=== PATIENT | male | born 1955 | race Caucasian/White ===

== ENCOUNTER → 2018-09-14 16:02 | Outpatient (CLI) | payer MEDICARE, SELFPAY ==
--- NOTE | 2018-09-14 | XR_ITS ---
XR chest 2V HISTORY: ITS.REASON: SOA, COUGH ORDERING PHYSICIAN: Angel Frank PATIENT AGE: 63 years COMPARISON: 11/15/2009 FINDINGS: The cardiomediastinal silhouette and pulmonary vascularity are within normal limits. The lungs are clear without infiltrates, suspicious nodules, or pleural effusions. No acute bony abnormalities. IMPRESSION: Negative chest, no acute finding
== END ==
PROVIDERS: PCP Internal Medicine; Visit Provider Internal Medicine
DX: R05 Cough (principal); R06.02 Shortness of breath
CPT/HCPCS: 71046; 93005

== ENCOUNTER 2020-04-30 20:51 | Emergency (ER) | payer MEDICARE, SELFPAY ==
[2020-04-30 21:00] VITALS: BP 147/90; PULSE 78; RESP 20; TEMP 36.6; O2SAT 98; BMI 28.1
--- NOTE | 2020-04-30 21:15 | HMH.EDUTC ---
[facility] [place] Clinical Impression: Exposure to COVID-19 virus Disposition: Home, Self-Care Condition on Discharge: Good Instructions: Preventing the Spread of Coronavirus Discharge Instructions Additional Instructions: Drink plenty of fluids. Take tylenol for pain or fever. Return if you begin to have difficulty breathing. Follow up with your regular doctor. GO TO THE ER FOR ANY WORSENING SYMPTOMS I sent a prescription for antibiotics (azithromycin). Don't start these unless you start having symptoms of your copd flaring up. Prescriptions: Ondansetron [Zofran 4mg ODT] 4 mg PO Q8HP PRN #9 tab.rapdis PRN Reason: Nausea Transmission Status: Pending to [facility] Benzonatate [Tessalon Perle 100mg Cap] 100 mg PO TIDP PRN #30 cap PRN Reason: Cough Transmission Status: Pending to [facility] Azithromycin [Z-Abdiel 250mg Tab*] 250 mg PO UD DOSE PK #6 tab Transmission Status: Pending to [facility] Referrals: Angel Frank [Primary Care Provider] - Time of Disposition: 21:32 Medical Decision Making - Medical Records Medical records reviewed: No: I reviewed the patient's medical records. - Pete Inquiry Pt receiving controlled substance: No Vital Signs: 04/30/20 21:00 04/30/20 21:22 Temperature 97.8 F 97.8 F Temperature Source Oral Pulse Rate 78 Pulse Rate [Right Brachial] 78 Respiratory Rate 20 20 Blood Pressure 00/00 L 02 Sat by Pulse Oximetry 98 Oxygen Delivery Method Room Air Orders (Tests/Meds): ORDERS Category Date Time Status Covid-19 Nasal PCR ([facility]) Routine Lab 04/30/20 21:02 Ordered [facility] [place] HPI - General Stated complaint: covid test Time Seen by Provider: 04/30/20 21:15 - History of Present Illness Provider Complaint: He states that he was exposed to covid about 6 days ago. He denies any symptoms so far. He is worried because he has a history of copd. - Related Data Previous Rx's Medication Instructions Recorded Azithromycin [Z-Abdiel 250mg Tab*] 250 mg PO UD DOSE PK #6 tab 04/30/20 Benzonatate [Tessalon Perle 100mg 100 mg PO TIDP PRN #30 cap 04/30/20 Cap] Ondansetron [Zofran 4mg ODT] 4 mg PO Q8HP PRN #9 tab.rapdis 04/30/20 Allergies Allergy/AdvReac Type Severity Reaction Status Date / Time No Known Allergies Allergy Verified 04/30/20 21:18 [facility] History - Hepatitis A Screen Attestation statement:: This patient has been screened for Hepatitis A risk factors. I have reviewed the patient's past medical history: Yes ROS Obtained: Yes All systems reviewed & no additional complaints - Constitutional Constitutional: Reports system reviewed and no additional complaints, except as docu - Eyes Eyes: Reports system reviewed and no additional complaints, except as docu - ENT Ears, Nose, Mouth, and Throat: Reports system reviewed and no additional complaints, except as docu - Cardiovascular Cardiovascular: Reports system reviewed and no additional complaints, except as docu - Respiratory Respiratory: Reports system reviewed and no additional complaints, except as docu - Gastrointestinal Gastrointestingal: Reports: system reviewed and no additional complaints, except as docu Physical Exam - General General appearance: alert, in no apparent distress - Head Head exam: atraumatic, normocephalic, normal inspection - Eye Eye exam: Present: normal appearance, PERRL, EOMI - ENT ENT exam: Present: normal exam, normal oropharynx, mucous membranes moist, TM's normal bilaterally, normal external ear exam - Neck Neck exam: Present: normal inspection, full ROM, trachea midline. Absent: meningismus, lymphadenopathy - Chest Chest inspection: Present: normal inspection, symmetric chest wall rise. Absent: tenderness - Respiratory Respiratory exam: Present: normal lung sounds bilaterally. Absent: respiratory distress - Cardiovascular Cardiovascular exam: Present: regular
[2020-04-30 21:22] VITALS: BP 00/00; PULSE 78; RESP 20; TEMP 36.6; O2SAT 98
--- NOTE | 2020-05-01 10:47 | PC.NURSE ---
patient notified of positive covid results
== END 2020-04-30 21:40 | disposition home or self-care (01) ==
PROVIDERS: Emergency Provider Nurse Practitioner Family; PCP Internal Medicine
DX: U07.1 COVID-19 (principal); J44.9 Chronic obstructive pulmonary disease, unspecified
CPT/HCPCS: G0463; 99202; U0003

== ENCOUNTER → 2021-05-10 13:21 | Outpatient (CLI) | payer MEDICARE, SELFPAY ==
[2021-05-10 14:09] LABS: Alanine Aminotransferase 24 U/L (12-78); Albumin Level 4.3 g/dl (3.5-5.0); Albumin/Globulin Ratio 1.8 (1.1-1.8); Alkaline Phosphatase 78 U/L (38-126); Anion Gap 12.6 mEq/L (5-15); Aspartate Amino Transferase 30 U/L (17-59); Basophils # 0.1 K/mm3 (0-0.2); Basophils % 0.9 % (0.1-2.0); Bilirubin,Total 0.3 mg/dl (0.2-1.3); Blood Urea Nitrogen 19 mg/dl (9-20); Calcium 8.7 mg/dl (8.4-10.2); Carbon Dioxide 26 mmol/L (22.0-30.0); Chloride 102 mmol/L (98-107); Eosinophils # 0.4 K/mm3 (0.0-0.4); Eosinophils % 6.2 % (0.1-12.0); Estimated Glomerular Filt Rate 55 ml/min (>60); GFR (African American) 67 ML/MIN (>60); Globulin 2.4 g/dL (1.3-3.2); Glucose 89 mg/dl (74-100); Hematocrit 40.7 % (42.0-52.0); Hemoglobin 12.9 g/dL (14.1-18.0); Lymphocytes # 2.2 K/mm3 (0.7-4.5); Lymphocytes % 34.3 % (10-50); Mean Corpuscular HGB Conc 31.6 g/dL (31.8-35.4); Mean Corpuscular Hemoglobin 31.1 pg (27.0-31.2); Mean Corpuscular Volume 98.4 fl (80-94); Mean Platelet Volume 8.9 fl (7.4-10.4); Monocytes # 0.6 K/mm3 (0.1-1.0); Monocytes % 9.3 % (1.7-9.3); Neutrophils # 3.2 K/mm3 (1.8-7.8); Neutrophils % 49.3 % (37.0-80.0); Platelet Count 414 K/mm3 (142-424); Potassium 4.6 mmoL/L (3.5-5.1); Red Blood Count 4.13 M/mm3 (4.60-6.20); Red Cell Distribution Width 13.7 % (11.5-17.5); Sodium 136 mmol/L (136-145); Total Protein,Serum 6.7 g/dl (6.3-8.2); White Blood Count 6.5 K/mm3 (4.8-10.8)
[2021-05-10 14:38] LABS: Prostate Specific Ag Screen 0.5 ng/ml (0.0-4.0)
[2021-05-10 16:33] LABS: Ferritin 22.2 ng/ml (17.9-464)
== END ==
PROVIDERS: Visit Provider Internal Medicine
DX: E78.5 Hyperlipidemia, unspecified (principal); G47.33 Obstructive sleep apnea (adult) (pediatric); G25.81 Restless legs syndrome; F51.01 Primary insomnia; N40.1 Benign prostatic hyperplasia with lower urinary tract symptoms; Z12.5 Encounter for screening for malignant neoplasm of prostate; D64.9 Anemia, unspecified
CPT/HCPCS: 80053; 82728; 85025; G0103

== ENCOUNTER 2021-12-14 03:55 | Emergency (ER) | payer MEDICARE, SELFPAY ==
[2021-12-14 03:56] VITALS: BP 152/85; PULSE 79; RESP 20; TEMP 36.6; O2SAT 96; BMI 27.3
--- NOTE | 2021-12-14 04:59 | HMH.EDGENADL ---
Discharge Plan Disposition Patient Disposition: Home, Self-Care Chief Complaint: PAIN Prescriptions Prescriptions: No Action hydrocodone-acetaminophen 10-325 mg tablet 1 tab PO DAILY pramipexole [Mirapex] 0.25 mg Tablet 1 - 2 mg PO DIRECTED Rx Instructions: 1 tab in am, 2 tab at bedtime Referrals Referrals: Angel Frank MD [Primary Care Provider] - Enter time for follow up Clinical Impressions Clinical Impression: RLS (restless legs syndrome) Instructions Patient Instructions: DI for Restless Legs Syndrome Discharge ED Provider: Tim Alvarado General Adult HPI General Chief complaint: PAIN Stated complaint: RLS no sleep in 2 days Time Seen by Provider: 12/14/21 04:59 Mode of Arrival: Family Vehicle Source of Information: Patient, Spouse and Medical Record Limitations: No Limitations Description of Symptoms (Recalled from ER Triage Doc. by RN): Pt c/o increase in RLS causing no sleep in 2 nights. He takes Mirapex 0.50mg at night but the symptoms have only worsened. Pt states he took 2 green sleeping pills @ 0300 without effect. He denies knowledge of the type of medication, only that they are OTC. Denies any fever or chills. Denies any n/v/d. Denies recent falls or trauma. Reports it is effecting BLE. History of Present Illness HPI narrative: pt with acute exacerbation of rls -has been using meds Onset (ago): hour(s) Location: lower extremity Radiation: extremity Severity: similar to prior episodes Consistency: intermittent Associated symptoms: denies other symptoms Related Data Home Medications Medication Instructions Recorded Confirmed hydrocodone 10 mg-acetaminophen 1 tab PO DAILY chronic pain 12/14/21 12/14/21 325 mg tablet ropinirole 1 mg tablet 1 - 2 mg PO DIRECTED Restless 12/14/21 12/14/21 leg Allergies Allergy/AdvReac Type Severity Reaction Status Date / Time No Known Allergies Allergy Verified 04/30/20 21:18 PFSH PFSH Social History Smoking Status: Former smoker alcohol intake: never current occupational status: other ROS Obtained: Yes All systems reviewed & no additional complaints except as documented Physical Exam General General appearance: alert Head Head exam: atraumatic Eye Eye exam: Present PERRL and EOMI ENT ENT exam: Present mucous membranes moist Neck Neck exam: Present trachea midline Respiratory Respiratory exam: Present normal lung sounds bilaterally Cardiovascular Cardiovascular exam: Present regular rate Extremities Exam Extremities exam: Present full ROM and other (pulse -ok) Neurological Exam Neurological exam: Present alert, oriented X3 and CN II-XII intact Psychiatric Psychiatric exam: Present normal affect Skin Skin exam: Absent rash Medical Decision Making Medical Records Medical records reviewed: Yes I reviewed the patient's medical records. Pete Inquiry Pt receiving controlled substance: No Vital Signs: 12/14/21 03:56 Temperature 97.9 F Temperature Source Oral Pulse Rate [Right] 79 Respiratory Rate 20 Blood Pressure [Right Arm] 152/85 H Blood Pressure Mean [Right Arm] 107 Blood Pressure Source [Right Arm] Automatic Cuff 02 Sat by Pulse Oximetry 96 Oxygen Delivery Method Room Air Lab Data Lab results reviewed: Yes I reviewed the patient's lab results. Medical Decision Narrative: acute rls - pt has tried multiple meds 0 on requip now Critical Care Time Critical Care Time Critical Care Time: No
--- NOTE | 2021-12-14 05:18 | PC.NURSE ---
at speaking with pt about POC
[2021-12-14 05:27] VITALS: BP 135/88; PULSE 85; RESP 20; TEMP 36.8; O2SAT 97
== END 2021-12-14 05:27 | disposition home or self-care (01) ==
PROVIDERS: Emergency Provider Emergency Medicine; PCP Internal Medicine
DX: G25.81 Restless legs syndrome (principal)
CPT/HCPCS: 96372; 99283

== ENCOUNTER 2022-01-06 18:45 | Emergency (ER) | payer MEDICARE, SELFPAY ==
--- NOTE | 2022-01-06 18:41 | ECG_ITS ---
APPROVED REPORT Exam: Resting ECG HR:58 bpm ECG Measurements Heart Rate 58 AXES IA 184 P 74 QRSd 110 QRS 69 QT 411 T 78 QTc 409 Conclusion SINUS BRADYCARDIA WITH SINUS ARRHYTHMIA BORDERLINE ECG INTERPRETATION BASED ON A DEFAULT AGE OF 39 YEARS UNCONFIRMED REPORT Electronically signed by : Brendan Jorge MD 01/07/2022 21:09:23
[2022-01-06 18:46] VITALS: BP 146/78; PULSE 72; RESP 20; TEMP 36.7; O2SAT 99; BMI 27.3
--- NOTE | 2022-01-06 18:49 | HMH.EDGENADL ---
Discharge Plan Disposition Patient Disposition: Home, Self-Care Prescriptions Prescriptions: New ondansetron 4 mg tablet,disintegrating 4 mg PO Q6H PRN (Reason: nausea and vomiting) Qty: 20 0RF No Action hydrocodone-acetaminophen 10-325 mg tablet 1 tab PO DAILY ropinirole 1 mg tablet 1 - 2 mg PO DIRECTED Rx Instructions: 1- morning, 1- afternoon, 2 at bedtime Referrals Follow up/Referrals: Angel Frank MD [Primary Care Provider] - See instructions Clinical Impressions Clinical Impression: Dehydration, Nausea & vomiting Instructions Patient Instructions: Nausea and Vomiting-Adult, Ondansetron, DI for Dehydration -- Adult Print Language Print Language: Kyrgyz Discharge ED Provider: Austin Childers General Adult HPI General Chief complaint: Dizziness Stated complaint: weakness Time Seen by Provider: 01/06/22 18:49 Mode of Arrival: Wheelchair Source of Information: Patient History of Present Illness HPI narrative: 66-year-old male with no significant past medical history presents with general fatigue, nausea, vomiting, states onset was approximately 3 PM today. No clear provocative factors, does not recall eating any food that could be causative. No recent travel, no recent well water drinking. Denies diarrhea, fevers, chills. Denies abdominal pain. No significant past abdominal surgical history. He is not aware of any sick contacts. No treatments prior to arrival here Related Data Home Medications Medication Instructions Recorded Confirmed hydrocodone 10 mg-acetaminophen 1 tab PO DAILY chronic pain 12/14/21 12/14/21 325 mg tablet ropinirole 1 mg tablet 1 - 2 mg PO DIRECTED Restless 12/14/21 12/14/21 leg Previous Rx's Medication Instructions Recorded ondansetron 4 mg disintegrating 4 mg PO Q6H PRN nausea and 01/06/22 tablet vomiting #20 tabs Allergies Allergy/AdvReac Type Severity Reaction Status Date / Time No Known Allergies Allergy Verified 04/30/20 21:18 PFSH PFS Social History Smoking Status: Unknown if ever smoked alcohol intake: never current occupational status: other Travel in the last 8 weeks: None ROS Obtained: Yes Systems reviewed as appropriate & no additional complaints except as documented Constitutional Constitutional: Reports malaise Eyes Eyes: Reports system reviewed and no additional complaints, except as documented ENT Ears, Nose, Mouth, and Throat: Reports system reviewed and no additional complaints, except as documented Cardiovascular Cardiovascular: Reports system reviewed and no additional complaints, except as documented Respiratory Respiratory: Reports system reviewed and no additional complaints, except as documented Gastrointestinal Gastrointestingal: Reports as per HPI, nausea and vomiting; Denies abdominal pain Genitourinary Male Genitourinary: Reports system reviewed and no additional complaints, except as documented Musculoskeletal Musculoskeletal: Reports system reviewed and no additional complaints, except as documented Integumentary/Breasts Skin/Breast: Reports system reviewed and no additional complaints, except as documented Neurologic Neurologic: Reports system reviewed and no additional complaints, except as documented Endocrine Endocrine: Reports system reviewed and no additional complaints, except as documented Hematologic/Lymphatic Henatologic/Lymphatic: Reports system reviewed and no additional complaints, except as documented Allergic/Immunologic Allergic/Immunologic: Reports system reviewed and no additional complaints, except as documented Physical Exam General General appearance: alert and in no apparent distress Head Head exam: atraumatic, normocephalic and normal inspection Eye Eye exam: Present normal appearance, PERRL and EOMI ENT ENT exam: Present normal exam, normal oropharynx, mucous membranes moist, TM's normal bilaterally
[2022-01-06 19:38] LABS: Alanine Aminotransferase 28 U/L (12-78); Albumin Level 4.4 g/dl (3.5-5.0); Albumin/Globulin Ratio 1.5 (1.1-1.8); Alkaline Phosphatase 123 U/L (38-126); Aspartate Amino Transferase 35 U/L (17-59); Bilirubin,Total 0.2 mg/dl (0.2-1.3); Blood Urea Nitrogen 18 mg/dl (9-20); Calcium 8.8 mg/dl (8.4-10.2); Carbon Dioxide 20 mmol/L (22.0-30.0); Chloride 104 mmol/L (98-107); Creatinine Clearance Estimated 69 mL/min (50-200); Estimated Glomerular Filt Rate 60 ml/min (>60); GFR (African American) 73 ML/MIN (>60); Glucose 162 mg/dl (74-100); Lipase 482 U/L (23-300); Sodium 140 mmol/L (136-145); Total Protein,Serum 7.4 g/dl (6.3-8.2)
[2022-01-06 19:40] LABS: Basophils % 0.2 % (0.1-2.0); Eosinophils % 0.2 % (0.1-12.0); Hematocrit 41.1 % (42.0-52.0); Hemoglobin 13.2 g/dL (14.1-18.0); Lymphocytes # 1.5 K/mm3 (0.7-4.5); Lymphocytes % 9.8 % (10-50); Mean Corpuscular HGB Conc 32.1 g/dL (31.8-35.4); Mean Corpuscular Hemoglobin 30.1 pg (27.0-31.2); Mean Corpuscular Volume 93.7 fl (80-94); Mean Platelet Volume 7.7 fl (7.4-10.4); Monocytes # 0.4 K/mm3 (0.1-1.0); Monocytes % 2.6 % (1.7-9.3); Neutrophils # 13.1 K/mm3 (1.8-7.8); Neutrophils % 87.2 % (37.0-80.0); Platelet Count 527 K/mm3 (142-424); Red Blood Count 4.39 M/mm3 (4.60-6.20); Red Cell Distribution Width 13.1 % (11.5-17.5)
[2022-01-06 19:43] LABS: MANUAL DIFFERENTIAL MANUAL DIFFERENTIAL (MANUAL DIFF)
[2022-01-06 20:41] VITALS: BP 126/87; PULSE 74; RESP 16; TEMP 37.2; O2SAT 96
[2022-01-06 20:49] LABS: Lymphocytes % 14 % (10-50); Neutrophils % 86 % (42-76); Platelet Estimate Moderate Increase; RBC Morphology Normal; Total Cells Counted 100
== END 2022-01-06 20:44 | disposition home or self-care (01) ==
PROVIDERS: Emergency Provider Emergency Medicine; PCP Internal Medicine
DX: R53.1 Weakness (principal); E86.0 Dehydration; R11.2 Nausea with vomiting, unspecified; R42 Dizziness and giddiness
CPT/HCPCS: 80053; 83690; 85007; 85025; 93005; 96361; 96374; 99284; J2405

== ENCOUNTER 2023-04-27 15:07 | Outpatient (CLI) | payer MEDICARE, SELFPAY ==
[2023-04-27 15:32] LABS: Basophils % 0.6 % (0.1-2.0); Eosinophils # 0.4 K/mm3 (0.0-0.4); Eosinophils % 6.6 % (0.1-12.0); Hematocrit 38.7 % (42.0-52.0); Hemoglobin 12.9 g/dL (14.1-18.0); Lymphocytes # 1.8 K/mm3 (0.7-4.5); Lymphocytes % 31.6 % (10-50); Mean Corpuscular HGB Conc 33.3 g/dL (31.8-35.4); Mean Corpuscular Hemoglobin 31.2 pg (27.0-31.2); Mean Corpuscular Volume 93.6 fl (80-94); Mean Platelet Volume 8.4 fl (7.4-10.4); Monocytes # 0.4 K/mm3 (0.1-1.0); Monocytes % 6.6 % (1.7-9.3); Neutrophils % 54.5 % (37.0-80.0); Platelet Count 345 K/mm3 (142-424); Red Blood Count 4.13 M/mm3 (4.60-6.20); Red Cell Distribution Width 13.7 % (11.5-17.5); White Blood Count 5.5 K/mm3 (4.8-10.8)
[2023-04-27 15:59] LABS: Alanine Aminotransferase 26 U/L (12-78); Albumin Level 4.1 g/dl (3.5-5.0); Albumin/Globulin Ratio 1.5 (1.1-1.8); Alkaline Phosphatase 87 U/L (38-126); Aspartate Amino Transferase 32 U/L (17-59); Bilirubin,Total 0.3 mg/dl (0.2-1.3); Blood Urea Nitrogen 17 mg/dl (9-20); Calcium 8.2 mg/dl (8.4-10.2); Carbon Dioxide 26 mmol/L (22.0-30.0); Chloride 106 mmol/L (98-107); Estimated Glomerular Filt Rate 46 ml/min (>60); GFR (African American) 56 ML/MIN (>60); Globulin 2.7 g/dL (1.3-3.2); Glucose 92 mg/dl (74-100); Sodium 139 mmol/L (136-145); Total Protein,Serum 6.8 g/dl (6.3-8.2)
[2023-04-27 16:05] LABS: Anion Gap 11.4 mEq/L (5-15); Potassium 4.4 mmoL/L (3.5-5.1)
[2023-04-27 16:19] LABS: Erythrocyte Sedimentation Rate 51 mm/hr (0-20)
[2023-04-27 16:27] LABS: Thyroid Stimulating Hormone 2.95 uIU/mL (0.465-4.68)
[2023-04-27 17:02] LABS: Vitamin B12 272 pg/mL (239-931)
[2023-04-27 17:17] LABS: Folate 7.83 ng/mL
[2023-05-01 17:13] LABS: Albumin 3.5 g/dL (2.9-4.4); Alpha-1-Globulin 0.2 g/dL (0.0-0.4); Alpha-2-Globulin 0.7 g/dL (0.4-1.0); Gamma Globulin 0.8 g/dL (0.4-1.8); Protein, Total 6.4 g/dL (6.0-8.5)
[2023-05-06 09:32] LABS: PDF SCANNED IMAGE
== END 2023-04-27 23:59 ==
LOC: LAB.DROPOF 15:08
PROVIDERS: PCP Internal Medicine; Visit Provider Internal Medicine
DX: R41.3 Other amnesia (principal); G25.81 Restless legs syndrome
CPT/HCPCS: 80053; 82607; 82746; 84155; 84165; 84443; 85025; 85651

== ENCOUNTER 2023-05-07 15:27 | Outpatient (CLI) | payer MEDICARE, SELFPAY ==
--- NOTE | 2023-05-07 15:31 | CT_ITS ---
FINAL REPORT CLINICAL HISTORY: MEMORY LOSS FINDINGS: Axial images of the head were obtained without contrast. Coronal reformatted images were also obtained. This study was performed with techniques to keep radiation doses as low as reasonably achievable (ALARA). Individualized dose reduction techniques using automated exposure control or adjustment of mA and/or kV according to the patient's size were employed. There is generalized age-appropriate atrophy. Periventricular low-attenuation areas are seen consistent with mild chronic ischemic changes. There is no evidence of intracranial hemorrhage or mass. There is no evidence of acute infarct. There is no evidence of shift of the midline structures. No skull abnormality is seen on the bone window images. IMPRESSION: Atrophy and mild periventricular chronic ischemic changes. No acute intracranial abnormality identified. Reviewed, Interpreted and Dictated by Ranjith Aceves III, MD Transcribed by Lisandra Ellis Authenticated and [facility]
== END 2023-05-07 23:59 ==
LOC: RAD 15:27
PROVIDERS: PCP Internal Medicine; Visit Provider Internal Medicine
DX: R41.3 Other amnesia (principal)
CPT/HCPCS: 70450

== ENCOUNTER 2023-06-12 09:59 | Outpatient (CLI) | payer MEDICARE, SELFPAY ==
[2023-06-12 10:30] VITALS: PULSE 74
[2023-06-12] MEDS: ALBUTEROL 0.083% 2.5 MG/3 ML NEB IH (10:30)
--- NOTE | 2023-06-12 11:15 | XR_ITS ---
FINAL REPORT TECHNIQUE: Chest PA & Lateral CLINICAL HISTORY: hypoxemia FINDINGS: 2 views of the chest were performed. The heart size is normal. The mediastinum is within normal limits. There is no acute cardiopulmonary process. A calcified granuloma is seen in the left upper lobe. There are no pleural effusions. There is no pneumothorax. The bony thorax appears intact. IMPRESSION: No acute cardiopulmonary process. Reviewed, Interpreted and Dictated by Raj Ronquillo MD Transcribed by Lisa Anaya Authenticated and . [facility]
== END 2023-06-12 23:59 ==
LOC: RT 09:59
PROVIDERS: PCP Internal Medicine; Visit Provider Nurse Practitioner Family
DX: D64.9 Anemia, unspecified (principal); E53.8 Deficiency of other specified B group vitamins; E83.10 Disorder of iron metabolism, unspecified; G25.81 Restless legs syndrome; G47.33 Obstructive sleep apnea (adult) (pediatric); H91.93 Unspecified hearing loss, bilateral; N18.9 Chronic kidney disease, unspecified; R06.02 Shortness of breath; R41.3 Other amnesia; R73.9 Hyperglycemia, unspecified; Z78.9 Other specified health status; Z82.0 Family history of epilepsy and other diseases of the nervous system; Z87.891 Personal history of nicotine dependence
CPT/HCPCS: 71046; 94060; 94618; 94640; 94726; 94729

== ENCOUNTER 2023-06-26 09:17 | Outpatient (CLI) | payer MEDICARE, SELFPAY ==
[2023-06-26 10:07] LABS: Chol/HDL Ratio 3.8 (1-3.5); Cholesterol 173 mg/dl (140-200); HDL Cholesterol 45 mg/dl (40-60); Triglycerides 221 mg/dl (30-150); VLDL Cholesterol 44 mg/dL (0-40)
[2023-06-26 10:18] LABS: C-Reactive Protein 8.1 mg/L (0-4); Direct LDL Cholesterol 80.61 mg/dL (100-129)
[2023-06-26 10:55] LABS: Vitamin B12 250 pg/mL (239-931)
[2023-06-26 11:28] LABS: Iron 59 ug/dL (49-181)
[2023-06-26 11:37] LABS: Total Iron Binding Capacity 351 ug/dL (261-462)
[2023-06-26 11:50] LABS: Erythrocyte Sedimentation Rate 23 mm/hr (0-20)
[2023-06-26 12:03] LABS: Ferritin 15.1 ng/ml (17.9-464)
[2023-06-27 15:51] LABS: Rapid Plasma Reagin Ab Titer Non Reactive titer (NonRea<1:1)
[2023-07-06 09:36] LABS: Antinuclear Antibodies (ANA) Negative; Methylmalonic Acid 349 nmol/L (0-378)
== END 2023-06-26 23:59 ==
LOC: LAB 09:17
PROVIDERS: PCP Internal Medicine; Visit Provider Nurse Practitioner Family
DX: Z87.891 Personal history of nicotine dependence; R06.02 Shortness of breath; G47.33 Obstructive sleep apnea (adult) (pediatric); H91.93 Unspecified hearing loss, bilateral; Z82.0 Family history of epilepsy and other diseases of the nervous system; N18.9 Chronic kidney disease, unspecified; D64.9 Anemia, unspecified; E53.8 Deficiency of other specified B group vitamins; R41.3 Other amnesia; G25.81 Restless legs syndrome
CPT/HCPCS: 36415; 80061; 82607; 82728; 83036; 83540; 83550; 83921; 85651; 86038; 86140; 86225; 86235; 86593

== ENCOUNTER 2023-06-30 08:20 | Outpatient (CLI) | payer MEDICARE, SELFPAY ==
--- NOTE | 2023-06-30 08:21 | MR_ITS ---
FINAL REPORT CLINICAL HISTORY: memory loss, head trauma. DIZZINESS FINDINGS: Multiplanar MR imaging of the brain was performed without contrast. There is mild age-appropriate atrophy. There are scattered foci of increased T2 signal in the cerebral white matter that have a nonspecific appearance but likely represent moderate chronic ischemic/gliotic changes. There is no evidence of intracranial hemorrhage or mass. No abnormal ventricular dilatation is identified. No abnormal extra-axial fluid collection is seen. No abnormality is seen on the diffusion weighted images. The posterior fossa and brainstem are unremarkable. Normal major vessel vascular flow voids are seen. There is mild mucosal thickening of multiple ethmoid air cells. IMPRESSION: Age-appropriate atrophy and moderate chronic ischemic/gliotic changes. No acute intracranial abnormality. Reviewed, Interpreted and Dictated by Ranjith Aceves III, MD Transcribed by Lisandra Ellis Authenticated and [facility]
== END 2023-06-30 23:59 ==
LOC: RAD 08:21
PROVIDERS: PCP Internal Medicine; Visit Provider Nurse Practitioner Family
DX: R41.3 Other amnesia (principal); H91.93 Unspecified hearing loss, bilateral; Z82.0 Family history of epilepsy and other diseases of the nervous system; G25.81 Restless legs syndrome; G47.33 Obstructive sleep apnea (adult) (pediatric); R06.02 Shortness of breath; E83.10 Disorder of iron metabolism, unspecified; R73.9 Hyperglycemia, unspecified; N18.9 Chronic kidney disease, unspecified; D64.9 Anemia, unspecified; E53.8 Deficiency of other specified B group vitamins; Z78.9 Other specified health status; Z87.891 Personal history of nicotine dependence
CPT/HCPCS: 70551

== ENCOUNTER → 2023-07-09 20:16 | Outpatient (CLI) | payer MEDICARE, SELFPAY | LOC: SL 20:19 | PROVIDERS: PCP Internal Medicine; Visit Provider Nurse Practitioner Family | DX: G47.33 Obstructive sleep apnea (adult) (pediatric) (principal); R06.02 Shortness of breath; R41.3 Other amnesia; G25.81 Restless legs syndrome | CPT/HCPCS: 95810 ==

== ENCOUNTER 2023-08-18 10:03 | Outpatient (CLI) | payer MEDICARE, SELFPAY ==
--- NOTE | 2023-08-18 10:03 | CT_ITS ---
FINAL REPORT TECHNIQUE: Axial images were obtained from the lung apex to the mid abdomen by computed tomography. This study was performed with techniques to keep radiation doses as low as reasonably achievable (ALARA). Individualized dose reduction techniques using automated exposure control or adjustment of mA and/or kV according to the patient's size were employed. CLINICAL HISTORY: lung cancer screening former smoker, quit 14 years ago smoked 2 PPD, smoked 20 years total FINDINGS: CHEST CT LOW DOSE CTDI vol (mGy): 2.90 DLP (mGy-cm): 100.03 There is no axillary adenopathy. There is no hilar or mediastinal adenopathy. The heart is normal in size. There is no pericardial or pleural effusion. There is emphysema. There is a 4 mm right lower lobe nodule seen on image 50. There is a 5 mm left lower lobe nodule seen on image 50. There is a 4 mm left lower lobe nodule seen on image 54. Limited images of the upper abdomen are unremarkable. IMPRESSION: Small bilateral lower lobe nodules, favor benign. Lung RADS category 2. Recommend 12 month follow-up low-dose chest CT. Reviewed, Interpreted and Dictated by Jovon Darling MD Transcribed by Lisandra Ellis Authenticated and [facility]
--- NOTE | 2023-08-18 10:11 | CA_ITS ---
APPROVED REPORT EXAM: Comprehensive 2D, Doppler, and color-flow Echocardiogram Cassandra Consultant: Yulisa Villarreal RT(R) Ht: 5 ft 7 in Wt: 184lbs BSA: 1.95 BP: 144/87 mmHg Indications: SOA, smoker, fatigue 2D Dimensions Left Atrium 2.51 cm M: 3.0 - 4.0 LVEF (Hinds's) 46.30 % M: 52 - 72 LVOT 1.90 cm (M/F) 1.5-2.5 LV Volume 82.80 mL M: 62 - 150 LV Volume Index 42.5 mL/m2 M: 34 - 74 LA Volume 23.50 mL LA Volume Index 12.05 mL/m2 (M/F) 16-34 EF AP4 47.50 % EF AP2 44.7 % EF BP 46.3 % GL Strain -9.0 % M-Mode Dimensions RVDd 2.08 cm (0.9-2.6) LVDd 4.79 cm (3.5-5.7) Ao Diam 2.77 cm (2.0-3.7) LVDs 3.77 cm (3.5-5.7) IVSd 1.10 cm (0.6-1.1) PWd 1.06 cm (0.6-1.1) EF (Teich) 43.20% FS 21.30% EDV (Teich) 107.00 mL ESV (Teich) 60.80 mL LV Diastology E Decel Time 150 (160-240 msec) E/A Ratio 0.9 MED E' 7.0 (>= 7 cm/sec) E'/MED E' Ratio 9.74 (<= 14) LAT E' 11.0 (>= 10 cm/sec) E/LAT E' Ratio 6.20 (<= 14) Mitral Valve MV E Max Jovan. 68.0 (40-130 cm/s) MV A Velocity 77.0 (40-130 cm/s) E/A Ratio 0.89 MV Decel. Time 150 (160-240 ms) Left Ventricle The left ventricle is normal size. The left ventricular systolic function is normal. The left ventricular ejection fraction is within the normal range. There is increased LV wall thickness. There is normal LV segmental wall motion. The left ventricular diastolic function is normal. LVEF is 60%. Right Ventricle The right ventricle is mildly dilated. The right ventricular systolic function is normal. Atria The left atrium size is normal. The right atrium size is normal. There is no Doppler evidence of interatrial shunt. Aortic Valve The aortic valve opens well. There is no aortic valvular stenosis. No aortic regurgitation is present. Mitral Valve The mitral valve is normal in structure. No evidence of mitral valve stenosis. There is no mitral valve regurgitation noted. Tricuspid Valve The tricuspid valve leaflets are thin and pliable. Trace tricuspid regurgitation. There is insufficient TR jet to estimate RVSP. Pulmonic Valve The pulmonary valve is normal in structure. Trace pulmonic regurgitation. Great Vessels The aortic root is normal in size. The ascending aorta is not well visualized. IVC is normal in size and collapses >50% with inspiration. Pericardium There is no pericardial effusion. Other Information Study Quality: Fair Conclusion Normal biventricular systolic function. Mild RV dilation. No significant valvular stenosis or regurgitation. Electronically signed by : Anna Fleming MD 08/23/2023 15:27:07
== END 2023-08-18 23:59 | disposition home or self-care (01) ==
LOC: RT 10:03
PROVIDERS: PCP Internal Medicine; Visit Provider Internal Medicine Pulmonary Disease
DX: F17.210 Nicotine dependence, cigarettes, uncomplicated (principal); R06.02 Shortness of breath; Z12.2 Encounter for screening for malignant neoplasm of respiratory organs
CPT/HCPCS: 71271; 93306

== ENCOUNTER → 2023-11-11 15:40 | Outpatient (CLI) | payer MEDICARE, SELFPAY | LOC: SL 15:41 | PROVIDERS: PCP Internal Medicine; Visit Provider Specialist | DX: R06.02 Shortness of breath (principal); G47.33 Obstructive sleep apnea (adult) (pediatric) | CPT/HCPCS: 94762 ==

== ENCOUNTER 2024-08-23 09:55 | Outpatient (CLI) | payer MEDICARE, SELFPAY ==
[2024-08-23] MEDS: ALBUTEROL 0.083% 2.5 MG/3 ML NEB IH (10:30)
--- NOTE | 2024-08-23 10:30 | PC.NURSE ---
PFT and 6 Minute walk test completed without incident. Albuterol 0.083% given via HHN, per written protocol, Pt tolerated tx well.
== END 2024-08-23 23:59 | disposition home or self-care (01) ==
LOC: RT 09:56
PROVIDERS: PCP Internal Medicine; Visit Provider Internal Medicine Pulmonary Disease
DX: J44.9 Chronic obstructive pulmonary disease, unspecified (principal)
CPT/HCPCS: 94060; 94618; 94726; 94729

== ENCOUNTER 2024-11-28 10:31 | Emergency (ER) | payer MEDICARE, SELFPAY ==
--- NOTE | 2024-11-28 | ECG_ITS ---
APPROVED REPORT Exam: Resting ECG HR:66 bpm ECG Measurements Heart Rate 66 AXES IL 175 P 63 QRSd 108 QRS 22 QT 382 T 42 QTc 396 Conclusion SINUS RHYTHM WITH OCCASIONAL VENTRICULAR PREMATURE COMPLEXES BORDERLINE ECG UNCONFIRMED REPORT Electronically signed by : BRANDIE CUEVA, 11/28/2024 23:44:39
[2024-11-28 10:31] VITALS: BP 129/78; PULSE 72; RESP 18; TEMP 36.8; O2SAT 97; BMI 22.8
--- NOTE | 2024-11-28 10:38 | CT_ITS ---
FINAL REPORT TECHNIQUE: Noncontrast exam. This study was performed with techniques to keep radiation doses as low as reasonably achievable, (ALARA). Individualized dose reduction techniques using automated exposure control or adjustment of mA and/or kV according to the patient''s size were employed. CLINICAL HISTORY: Syncope COMPARISON: 05/07/2023 FINDINGS: Mild atrophy and chronic ischemic white matter changes are noted. No cortical edema is present. There is no mass or hemorrhage. Ventricles are normal. Bone windows show no skull fracture or obvious obstructive lesion. IMPRESSION: 1. No acute intracranial abnormality or obvious mass. 2. Atrophy and chronic ischemic white matter changes as above. Reviewed, Interpreted and Dictated by Jovon Darling MD Transcribed by Holly Crockett Authenticated and [facility]
--- NOTE | 2024-11-28 10:41 | HMH.EDGENADL ---
Discharge Plan Disposition Patient Disposition: Home, Self-Care Prescriptions Prescriptions: No Action ropinirole 1 mg tablet 1 - 2 mg PO DIRECTED Qty: 120 5RF Rx Instructions: 1- morning, 1- afternoon, 2 at bedtime hydrocodone-acetaminophen 10-325 mg tablet 1 tab PO TID Qty: 90 0RF Referrals Follow up/Referrals: Angel Frank MD [Primary Care Provider, Medical] - See instructions Juan Escalante MD [Staff Physician, Cardiology] - See instructions Activity Restrictions/Add. Instructions Additional Instructions/Restrictions: You are being set up with a Holter monitor to evaluate your heart rhythm for the next 48 hours. You are also being referred to a delivery truck driver, Dr. Escalante. I encourage you to call them this afternoon to schedule a follow-up appointment. If you develop any new or worsening symptoms, or if you become concerned for your health for any reason, return to the emergency department for evaluation. Continue to hydrate well by drinking plenty of fluids, including water, sugar-free Gatorade and Pedialyte. Clinical Impressions Clinical Impression: Syncope, Premature ventricular contraction on electrocardiogram Print Language Print Language: Indonesian Discharge ED Provider: Maxwell Powell General Adult HPI General Chief complaint: Dizziness Stated complaint: chest pain Time Seen by Provider: 11/28/24 10:33 Mode of Arrival: Wheelchair Source of Information: Patient and Spouse Limitations: No Limitations History of Present Illness HPI narrative: Adi Brantley is a 69y male with a history of dizziness, CKD, RADHA, and as well by Dr. Lazar after being put on albuterol inhalers who presents to the emergency department from the clinic [facility] for concern for a syncopal episode. Per patient's , who was with him during this episode, he complained of feeling dizzy and short of breath and then went unresponsive while sitting in the chair in the lobby of the clinic. A rapid response was called. Patient was alert and answering questions at the time of my evaluation. He was able to transition over to the wheelchair and was brought to the emergency department. Patient denies ever having any chest pain. He denies any history of heart attacks. Patient has no pain and states that he overall feels well at this time. Patient's and he states that these episodes of dizziness and shortness of breath happen frequently, however he typically does not become unresponsive with them. He denies any abdominal pain, recent illness. Related Data Previous Rx's ?Medication ?Instructions ?Recorded ropinirole 1 mg tablet 1 - 2 mg (1 - 2 x 1 mg) PO 07/26/24 DIRECTED Restless leg #120 tabs hydrocodone 10 mg-acetaminophen 1 tab PO TID chronic pain #90 tabs 11/18/24 325 mg tablet Allergies Allergy/AdvReac Type Severity Reaction Status Date / Time Penicillins Allergy Mild Verified 08/23/24 11:24 [facility] Disclaimer: The information contained in this section may have been updated after the patient was seen, as this information can be updated by other users. Medical History (Updated 11/28/24 @ 12:38 by Maxwell Powell MD) Asthma Encounter for screening for malignant neoplasm of lung Dyspnea on exertion History of smoking 30 or more pack years Dizziness RLS (restless legs syndrome) Surgical History No history of previous surgery Family History Other COPD (chronic obstructive pulmonary disease) Cancer Social History Smoking Status: Former smoker alcohol intake: current alcohol intake frequency: holidays/special occasions only substance use type: denies use current occupational status: disabled Travel in the last 8 weeks?: None household members: spouse housing: house marital status: Other Medical History Have you received the Pneumonia Vaccine: No ROS Obtained: Yes Systems reviewed as appropriate & no additional complaints except as documented Physical Exam General General appearance: alert and in no apparent distress Head Head exam: atraumatic Eye Eye exam: Present normal appearance, PERRL and EOMI ENT ENT exam: Present normal external ear exam Neck Neck exam: Present full ROM Chest Chest inspection: Present symmetric chest wall rise Respiratory Respiratory exam: Present normal lung sounds bilaterally; Absent respiratory distress, wheezes or stridor Cardiovascular Cardiovascular exam: Present regular rate and normal rhythm Abdominal Exam Abdominal exam: Present soft; Absent distention, tenderness or guarding exam: Present deferred Extremities Exam Extremities exam: Present normal inspection Back Exam Back exam: Present normal inspection Neurological Exam Neurological exam: Present alert, oriented X3, CN II-XII intact and other (No focal neurological deficit); Absent motor sensory deficit Psychiatric Psychiatric exam: Present normal affect Skin Skin exam: Present warm and dry Medical Decision Making Medical Records Screening: Per USPSTF and CDC recommendations, given the prevalence of disease in our region, it is our hospital?s policy to screen for HIV and viral Hepatitis for all patients aged 18 and over and those with ongoing risk factors. Pete Inquiry Pt receiving controlled substance: No Vital Signs: 11/28/24 10:31 11/28/24 11:00 11/28/24 12:00 Temperature 98.2 F Temperature Source Oral Pulse Rate 71 68 Pulse Rate [Apical] 72 Respiratory Rate 18 16 19 Blood Pressure 104/68 L 120/77 Blood Pressure [Right Arm] 129/78 Blood Pressure Mean [Right Arm] 95 Blood Pressure Source Blood Pressure Source [Right Arm] Automatic Cuff Blood Pressure Position Blood Pressure Position [Right Arm] Sitting 02 Sat by Pulse Oximetry 97 95 98 Oxygen Delivery Method Room Air 11/28/24 12:30 11/28/24 13:00 11/28/24 14:03 Temperature 98.1 F Temperature Source Oral Pulse Rate 63 68 84 Pulse Rate [Apical] Respiratory Rate 13 20 15 Blood Pressure 123/80 125/76 117/86 Blood Pressure [Right Arm] Blood Pressure Mean [Right Arm] Blood Pressure Source Automatic Cuff Blood Pressure Source [Right Arm] Blood Pressure Position Supine Blood Pressure Position [Right Arm] 02 Sat by Pulse Oximetry 97 97 Oxygen Delivery Method Room Air Lab Data Lab Results 11/28/24 10:40: WBC 8.9, RBC 4.03 L, Hgb 12.2 L, Hct 37.3 L, MCV 92.6, MCH 30.3, MCHC 32.7, RDW 14.0, Plt Count 328, MPV 10.4, Neut % (Auto) 71.5, Lymph % (Auto) 18.3, Forrest % (Auto) 9.5 H, Eos % (Auto) 0.3, Baso % (Auto) 0.2, Neut # (Auto) 6.4, Lymph # (Auto) 1.6, Forrest # (Auto) 0.9, Eos # (Auto) 0.0, Baso # (Auto) 0.0, Sodium 135 L, Potassium 4.1, Chloride 101, Carbon Dioxide 24, Anion Gap 14.1, BUN 23 H, Creatinine 1.50 H, Estimated Creat Clear 44, Estimated GFR 46 L, Est GFR ( Amer) 56 L, Glucose 136 H, Calcium 8.0 L, Magnesium 2.3, Total Bilirubin 0.6, AST 37, ALT 24, Alkaline Phosphatase 92, Troponin I < 0.01, NT-Pro-B Natriuret Pep 136 H, Total Protein 7.4, Albumin 4.5, Globulin 2.9, Albumin/Globulin Ratio 1.6, TSH 2.22, Free T4 0.97, HCV Ab SAL w/Rflx PCR Qn Negative, HIV Ag/Ab Combo Qual Negative 11/28/24 11:56: Urine Color Yellow, Urine Appearance Clear, Urine pH 6.0, Ur Specific [place] 1.010, Urine Protein Negative, Urine Glucose (UA) Negative, Urine Ketones Negative, Urine Blood Negative, Urine Nitrate Negative, Urine Bilirubin Negative, Urine Urobilinogen 0.2, Ur Leukocyte Esterase Negative, Urine RBC None, Urine WBC None, Ur Squamous Epith Cells None, Urine Bacteria None 11/28/24 13:04: Troponin I < 0.01 11/28/24 10:40 11/28/24 10:40 Orders (Tests/Meds): ED MEDICATIONS Discontinued Medications Generic Name Dose Route Start Last Admin Trade Name Freq PRN Reason Stop Dose Admin Iopamidol 150 ml 11/28/24 11:30 11/28/24 11:32 Iopamidol-370 (76%);100ml Bottle IV 11/28/24 11:31 150 ml ONCE ONE Administration Sodium Chloride 10 ml 11/28/24 11:30 11/28/24 11:32 Sodium Chloride 0.9% 10ml Syr (Rad Only) IV 12/28/24 11:29 10 ml NEEDED PRN Administration Maintain IV Site Sodium Chloride 100 ml 11/28/24 11:30 11/28/24 11:32 0.9 % Sodium Chloride 50 Ml Vial IV 11/28/24 11:31 100 ml ONCE ONE Administration ORDERS Category Date Time Status CT angio chest PE protocol Stat Cat Scan 11/28/24 10:[address] angio head Stat Cat Scan 11/28/24 10:[address] angio neck Stat Cat Scan 11/28/24 10:[address] head/brain wo con Stat Cat Scan 11/28/24 10:38 Completed BNP [NT Pro Brain Natriuretic Pep.] Stat Lab 11/28/24 10:40 Completed CBC w/Auto Diff [Complete Blood Count Auto Diff] Stat Lab 11/28/24 10:40 Completed CMP [Comprehensive Metabolic Panel] Stat Lab 11/28/24 10:40 Completed Free T4 (Free Thyroxine) Stat Lab 11/28/24 10:40 Completed HIV Combo Stat Lab 11/28/24 10:40 Completed Hepatitis C Ab Qual. W/ RFX Stat Lab 11/28/24 10:40 Completed Magnesium Stat Lab 11/28/24 10:40 Completed TSH [Thyroid Stimulating Hormone] Stat Lab 11/28/24 10:40 Completed Troponin I Q3H Lab 11/28/24 13:04 Completed Troponin I Stat Lab 11/28/24 10:40 Completed UA [Urinalysis and Microscopic] Stat Lab 11/28/24 11:56 Completed ECG holter initial pfn Routine Y 11/28/24 Completed ECG Data Tracing #1: I reviewed this ECG and interpreted as documented below: Normal sinus rhythm. No ST elevations or depressions. QTc normal at 396. Narrow QRS. Frequent PVCs. Medical Decision Narrative: Adi Brantley is a 69y male with a history of dizziness, CKD, RADHA, and as well by Dr. Lazar after being put on albuterol inhalers who [facility] emergency [facility] a syncopal episode. Per patient's , who was with him during this episode, he complained of feeling dizzy and short of breath and then went unresponsive while sitting in the chair in the lobby of the clinic. A rapid response was called. Patient was alert and answering questions at the time of my evaluation. He was able to transition over to the wheelchair and was brought to the emergency department. Patient denies ever having any chest pain. He denies any history of heart attacks. Patient has no pain and states that he overall feels well at this time. Patient's and he states that these episodes of dizziness and shortness of breath happen frequently, however he typically does not become unresponsive with them. He denies any abdominal pain, recent illness. On arrival, patient is normotensive, heart rate within normal limits, breathing comfortably on room air with appropriate oxygen saturation. Physical exam, as stated above, revealed an overall well-appearing male. He has a nonfocal neurological exam, GCS 15. Abdomen soft, nontender nondistended. Cardiopulmonary exam without murmurs, wheezing, rales or rhonchi. Differential diagnosis includes, but is not limited to: Cardiac arrhythmia, ACS, pulmonary embolism, electrolyte derangement, metabolic derangement, hypothyroidism, vasovagal syncope, low concern for large vessel occlusion, however will get CT head and CTA head and neck to rule out stenosis and cerebral insufficiency as a potential cause of his episodes of dizziness. Workup in the emergency department included: CTA head and neck, CTA chest pulmonary embolism protocol, CT head Noncon, CBC, CMP, TSH/free T4, magnesium level, BNP, troponin, urinalysis Laboratory studies interpreted by me personally. No leukocytosis, mild anemia with hemoglobin 12.2, hematocrit 37.3 (which appear to be his baseline), mild hyponatremia at 135 but nonactionable. Electrolytes otherwise within normal limits. Stable chronically elevated creatinine at 1.5 and BUN of 23. Glucose normal at 136. Magnesium normal at 2.3. Liver enzymes and bilirubin normal limits. Initial troponin less than 0.01. BNP slightly elevated at 136. Thyroid studies within normal limits. Urinalysis without blood, ketones or evidence of infection. CT imaging was interpreted by me personally. No intracranial hemorrhage, mass or midline shift. No large vessel occlusion or clinically significant stenosis. No evidence of pulmonary embolism or other acute findings within the chest. See final radiology report for details. At 1246, patient was placed into ED observation pending repeat troponin. Patient remained on telemetry and had frequent reassessments during his time in ED observation. Repeat troponin is negative. Patient was in ED observation for 1 hour and 15 minutes total. Patient will also have 48-hour Holter monitor placed as he does have PVCs on his EKG that could be causing some of his symptoms. Will recommend he contact cardiology office to schedule an appointment later this week. Patient has not had any recurrence of his symptoms here in the emergency department. Given this, is felt that he is appropriate for discharge at this time with strict return precautions. All questions were answered. He and family demonstrated understanding and were in agreement with this plan. He was then discharged from the emergency department in stable condition. Critical Care Critical Care Time Critical Care Time: No
--- NOTE | 2024-11-28 10:42 | CT_ITS ---
FINAL REPORT CLINICAL HISTORY: Syncope COMPARISON: None FINDINGS: CT NECK ANGIO, WITHOUT AND WITH CONTRAST TECHNIQUE: Thin section axial CT with contrast with multiplanar 3D MIP reconstruction. This study was performed with techniques to keep radiation doses as low as reasonably achievable, (ALARA). Individualized dose reduction techniques using automated exposure control or adjustment of mA and/or kV according to the patient''s size were employed. NASCET criteria and technique was utilized during interpretation. FINDINGS: Aortic arch: Arch shows no significant narrowing. Great vessel origins are widely patent. Right carotid: No significant stenosis is seen of the cervical common or internal carotid artery. Left carotid: No significant stenosis is seen of the cervical common or internal carotid artery. Vertebrals: Left vertebral artery is dominant. No significant stenosis is present. IMPRESSION: No significant stenosis of the cervical carotid arteries This study was performed using automated techniques to achieve radiation exposure as low as reasonably Reviewed, Interpreted and Dictated by Jovon Darling MD Transcribed by Dhara Lees Authenticated and [facility]
--- NOTE | 2024-11-28 10:42 | CT_ITS ---
FINAL REPORT CLINICAL HISTORY: Syncope COMPARISON: none FINDINGS: CTA HEAD TECHNIQUE: Thin section axial CT with contrast with 3D MIP reconstruction This study was performed with techniques to keep radiation doses as low as reasonably achievable, (ALARA). Individualized dose reduction techniques using automated exposure control or adjustment of mA and/or kV according to the patient''s size were employed. FINDINGS: No aneurysm is seen. Major intracranial vessels are patent without significant stenosis. . IMPRESSION: Unremarkable This study was performed using automated techniques to achieve radiation exposure as low as reasonably achievable Reviewed, Interpreted and Dictated by Jovon Darling MD Transcribed by Dhara Lees Authenticated and [facility]
--- NOTE | 2024-11-28 10:43 | CT_ITS ---
FINAL REPORT TECHNIQUE: Postcontrast axial images of the chest were performed in a CTA protocol. This study was performed with techniques to keep radiation doses as low as reasonably achievable, (ALARA). Individualized dose reduction technique using automated exposure control or adjustment of mA and/or kV according to the patient's size were employed. CLINICAL HISTORY: Syncope FINDINGS: The heart is normal in size. No adenopathy is identified. No pleural or pericardial effusion is identified. The thoracic aorta is normal in caliber with no focal aneurysm or dissection identified. There is no filling defect to suggest pulmonary embolism. No lung infiltrate or mass is identified. The images of the upper abdomen are unremarkable. IMPRESSION: No evidence for PE on this exam. Reviewed, Interpreted and Dictated by Jovon Darling MD Transcribed by Holly Crockett Authenticated and [facility]
[2024-11-28 10:51] LABS: Hematocrit 37.3 % (42.0-52.0); Hemoglobin 12.2 g/dL (14.1-18.0); Immature Granulocytes % 0.2 %; Mean Corpuscular HGB Conc 32.7 g/dL (31.8-35.4); Mean Corpuscular Hemoglobin 30.3 pg (27.0-31.2); Mean Corpuscular Volume 92.6 fl (80-94); Nucleated Red Blood Cells % 0 %; Platelet Count 328 K/mm3 (142-424); Red Blood Count 4.03 M/mm3 (4.60-6.20); Red Cell Distribution Width-SD 47.5 fL; White Blood Count 8.9 K/mm3 (4.8-10.8)
[2024-11-28 11:00] VITALS: BP 104/68; PULSE 71; RESP 16; O2SAT 95
[2024-11-28 11:00] LABS: Albumin Level 4.5 g/dl (3.5-5.0); Chloride 101 mmol/L (98-107); Potassium 4.1 mmoL/L (3.5-5.1); Sodium 135 mmol/L (136-145)
[2024-11-28 11:03] LABS: Alanine Aminotransferase 24 U/L (12-78); Albumin/Globulin Ratio 1.6 (1.1-1.8); Alkaline Phosphatase 92 U/L (38-126); Anion Gap 14.1 mEq/L (5-15); Aspartate Amino Transferase 37 U/L (17-59); Bilirubin,Total 0.6 mg/dl (0.2-1.3); Blood Urea Nitrogen 23 mg/dl (9-20); Carbon Dioxide 24 mmol/L (22.0-30.0); Creatinine Clearance Estimated 44 mL/min (50-200); Creatinine,Serum 1.50 mg/dl (0.66-1.25); Estimated Glomerular Filt Rate 46 ml/min (>60); GFR (African American) 56 ML/MIN (>60); Globulin 2.9 g/dL (1.3-3.2); Total Protein,Serum 7.4 g/dl (6.3-8.2)
[2024-11-28 11:04] LABS: Calcium 8.0 mg/dl (8.4-10.2); Glucose 136 mg/dl (74-100); Magnesium 2.3 mg/dl (1.6-2.3)
--- NOTE | 2024-11-28 11:05 | PC.NURSE ---
PT PROVIDED URINAL AND WARM BLANKET, CALL LIGHT WITHIN REACH. NO NEEDS AT THIS TIME
[2024-11-28 11:13] LABS: NT Pro Brain Natriuretic Pep. 136 pg/mL (0-125)
[2024-11-28 11:20] LABS: Troponin I < 0.01 ng/ml (0.00-0.034)
--- NOTE | 2024-11-28 11:20 | PC.NURSE ---
PT TO CT
[2024-11-28] MEDS: 0.9 % SODIUM CHLORIDE 50 ML VIAL 100 ML IV (11:32)
[2024-11-28] MEDS: IOPAMIDOL-370 (76%);100ML BOTTLE 150 ML IV (11:32)
[2024-11-28] MEDS: SODIUM CHLORIDE 0.9% 10ML SYR (RAD ONLY) 10 ML IV (11:32)
[2024-11-28 11:34] LABS: Thyroid Stimulating Hormone 2.22 uIU/mL (0.465-4.68)
[2024-11-28 11:35] LABS: Free T4 (Free Thyroxine) 0.97 ng/dl (0.78-2.19)
[2024-11-28 12:00] VITALS: BP 120/77; PULSE 68; RESP 19; O2SAT 98
[2024-11-28 12:00] LABS: Microscopic, Urine URINE MICROSCOPIC (MICROSCOPIC)
[2024-11-28 12:05] LABS: Hepatitis C Ab Qual. W/ RFX NEGATIVE (Negative)
[2024-11-28 12:17] LABS: Bilirubin,Urine Negative (Negative); Color,Urine YELLOW (Yellow); Glucose,Urine (UA) Negative (Negative); Ketones,Urine Negative (Negative); Leukocyte Esterase,Urine Negative (Negative); PH,Urine 6.0 (5.0-8.5); Protein,Urine Negative (Negative); Specific Gravity, Urine 1.010 (1.005-1.030); Urobilinogen,Urine 0.2 EU/dl (0.2)
[2024-11-28 12:30] VITALS: BP 123/80; PULSE 63; RESP 13; O2SAT 97
--- NOTE | 2024-11-28 12:34 | PC.NURSE ---
I notified Marissa in resp of the need for a 48h holter monitor
[2024-11-28 13:00] VITALS: BP 125/76; PULSE 68; RESP 20; O2SAT 97
--- NOTE | 2024-11-28 13:08 | PC.NURSE ---
repeat trop sent
[2024-11-28 13:45] LABS: Troponin I < 0.01 ng/ml (0.00-0.034)
[2024-11-28 14:03] VITALS: BP 117/86; PULSE 84; RESP 15; TEMP 36.7; O2SAT 96
== END 2024-11-28 14:07 | disposition home or self-care (01) ==
PROVIDERS: Emergency Provider Student in an Organized Health Care Education/Training Program; PCP Internal Medicine
DX: R07.9 Chest pain, unspecified (principal); R55 Syncope and collapse; I49.3 Ventricular premature depolarization; R42 Dizziness and giddiness; Z87.891 Personal history of nicotine dependence
CPT/HCPCS: 70450; 70496; 70498; 71275; 80053; 81001; 83735; 83880; 84439; 84443; 84484; 85025; 86803; 87389; 93005; 93225; 93227; 99285; Q9967

== ENCOUNTER 2024-11-30 13:59 | Outpatient (CLI) | payer MEDICARE, SELFPAY | END 2024-11-30 23:59 | disposition home or self-care (01) | LOC: RT 14:00 | PROVIDERS: PCP Internal Medicine; Visit Provider Nurse Practitioner | DX: I49.3 Ventricular premature depolarization (principal); I49.1 Atrial premature depolarization; I47.19 Other supraventricular tachycardia; R55 Syncope and collapse; R94.31 Abnormal electrocardiogram [ECG] [EKG] | CPT/HCPCS: 93270 ==

== ENCOUNTER 2024-12-14 12:28 | Outpatient (CLI) | payer MEDICARE, SELFPAY ==
--- NOTE | 2024-12-14 | CA_ITS ---
APPROVED REPORT Exam: Pharmacologic Technologist: Arleth Roberts Stress Nurse: Debby Brantley Ht: 5 ft 6 in Wt: 183 lbs BSA: 1.93 m2 HR: 58 bpm BP: 157/92 mmHg Stress Test Details Test: Lexiscan HR Resting HR: 58 bpm Max Heart Rate (APMHR): 150.082562 bpm Max HR Achieved: 86 bpm Target HR (85% APMHR): 127.996460 bpm % of APMHR: 57.33 Recovery HR: 69 bpm BP Resting BP: 157.0/92.0 mmHg Max BP: 157.0/92.0 mmHg Recovery BP: 135.0/71.0 mmHg ECG Resting ECG: Sinus rhythm, ventricular bigeminy/PAC Stress ECG Conclusion Lungs CTA prior to start of test. Symptoms: None Arrhythmias/Ectopy: PAC/PVC/Ventricular bigeminy ST-T Changes: Less than 0.[address] segment changes. Conclusion: Nondiagnostic ECG/ Lexiscan. Electronically signed by : Anna Fleming MD 12/16/2024 00:45:39
--- NOTE | 2024-12-14 13:00 | NM_ITS ---
APPROVED REPORT Exam: Nuclear Stress Test Indication: soa..syncope..fatigue Patient Location: Outpatient Stress Tech: Arleth Roberts MS Tech:Pamela MarieeLIYAH RT(R)(N) Ht: 5 ft 8 in Wt: 183 lbs HR: 65 bpm BP: 157/92 mmHg BSA: 1.97 m2 TID: 0.96 BMI: 27.8 History: soa..syncope..fatigue Procedure: Patient received 0.4 mg of intravenous Lexiscan, resting heart rate 65 bpm, resting blood pressure 157/92 mmHg, with Lexiscan maximum heart rate achieved was 87 bpm which is 85 % of the maximum predicted heart rate and blood pressure was 147/85 mmHg. With Lexiscan, patient denied any complaint of chest pain. Cardiac Stress and Resting SPECT Images: Cardiac Stress and Resting SPECT images were obtained using technetium 99m Myoview 32.9 mCi stress and 10.93 mCi at rest. Resting and stress imaging in supine and prone positions demonstrate a large sized, moderate, partially reversible perfusion defect in the inferior and inferoseptal LV reyna. Gated imaging demonstrates moderate reduction in global LV systolic function. LVEF is calculated at 33%. Conclusion: Large sized, moderate, partially reversible perfusion defect in the inferior and inferoseptal LV reyna. Findings are suggestive of partial reversible ischemia. Gated imaging demonstrates moderate reduction in global LV systolic function. LVEF is calculated at 33%. Electronically signed by : Anna Fleming MD 12/16/2024 00:32:57
[2024-12-14] MEDS: SODIUM CHLORIDE 0.9% 10ML SYR (RAD ONLY) 10 ML IV ×2 (14:29)
[2024-12-14] MEDS: ISOTOPE MYOVIEW (PER STUDY) 1 DOSE IV (14:29)
== END 2024-12-14 23:59 | disposition home or self-care (01) ==
LOC: RAD 12:29
PROVIDERS: PCP Internal Medicine; Visit Provider Nurse Practitioner
DX: I49.1 Atrial premature depolarization (principal); I49.3 Ventricular premature depolarization; R55 Syncope and collapse; R94.31 Abnormal electrocardiogram [ECG] [EKG]; R94.39 Abnormal result of other cardiovascular function study
CPT/HCPCS: 78452; 93017; 93018; A9502; J2785

== ENCOUNTER 2024-12-15 08:52 | Outpatient (CLI) | payer MEDICARE, SELFPAY ==
--- NOTE | 2024-12-15 11:15 | CA_ITS ---
APPROVED REPORT EXAM: Comprehensive 2D, Doppler, and color-flow Echocardiogram Licensed Tax Consultant: Cherise Hughes RVT Ht: 5 ft 6 in Wt: 183lbs BSA: 1.93 BP: 146/74 mmHg Indications: Dyspnea 2D Dimensions Left Atrium 2.84 cm M: 3.0 - 4.0 LA Volume 32.50 mL RVID Base (AP4) 2.87 cm (M/F) 2.5-4.1 LA Volume Index 16.84 mL/m2 (M/F) 16-34 LVOT 2.24 cm (M/F) 1.5-2.5 EF AP4 46.50 % GL Strain -11.5 % M-Mode Dimensions RVDd 2.59 cm (0.9-2.6) LVDd 5.93 cm (3.5-5.7) Ao Diam 2.84 cm (2.0-3.7) LVDs 4.30 cm (3.5-5.7) IVSd 0.91 cm (0.6-1.1) PWd 0.74 cm (0.6-1.1) EF (Teich) 52.60% FS 27.50% EDV (Teich) 175.20 mL TAPSE 2.30 (<1.7) ESV (Teich) 83.10 mL LV Diastology E Decel Time 231 (160-240 msec) E/A Ratio 1.3 MED E' 5.6 (>= 7 cm/sec) E'/MED E' Ratio 17.64 (<= 14) LAT E' 11.0 (>= 10 cm/sec) E/LAT E' Ratio 8.98 (<= 14) Aortic Valve LVOT Max 98.0 (70-110 cm/s) BRUNILDA Index 1.40 cm2/m2 LVOT VTI 22.00 cm AoV Peak Jovan. 130.0 (50-130 cm/s) AO Peak GR. 5.10 mmHg AO Mean GR. 4.20 (<5 mmHg) AO VTI 32.1 (18-25 cm) BRUNILDA (VTI) 2.70 (2.5-4.5 cm2) Mitral Valve MV E Max Jovan. 99.0 (40-130 cm/s) MV A Velocity 79.0 (40-130 cm/s) E/A Ratio 1.26 MV Decel. Time 231 (160-240 ms) Left Ventricle The left ventricle is normal size. Left ventricular systolic function is moderately reduced. There is increased left ventricular wall thickness. There is moderate global hypokinesis present. Grade 1 diastolic dysfunction is present. LVEF is 30-35% Right Ventricle The right ventricle is mildly to moderately dilated. The right ventricular systolic function is mildly reduced. Atria The left atrium is mildly dilated. The right atrium is mildly dilated. There is no color Doppler evidence of interatrial shunt. Aortic Valve The aortic valve is mildly thickened. There is no hemodynamically significant aortic valvular stenosis. Trace aortic regurgitation is present. Mitral Valve The mitral valve is normal in structure. No evidence of mitral valve stenosis. Mild mitral regurgitation is present. Tricuspid Valve The tricuspid valve leaflets are thin and pliable. Mild tricuspid regurgitation. RVSP is 20-25 mmHg. Pulmonic Valve The pulmonary valve is grossly normal in structure. Trace pulmonic valve regurgitation is present. Great Vessels The aortic root is normal in size. IVC is normal in size and collapses >50% with inspiration. Pericardium There is no pericardial effusion. Other Information Study Quality: Fair Conclusion Moderate reduction in LV systolic function (LVEF 30-35%). Mild to moderate RV dilation with mild reduction in RV function. Biatrial dilation. Mild MR, mild TR. Electronically signed by : Anna Fleming MD 12/17/2024 16:22:43
== END 2024-12-15 23:59 | disposition home or self-care (01) ==
LOC: RT 08:53
PROVIDERS: PCP Internal Medicine; Visit Provider Nurse Practitioner
DX: I08.1 Rheumatic disorders of both mitral and tricuspid valves (principal); I49.3 Ventricular premature depolarization; R55 Syncope and collapse; R94.31 Abnormal electrocardiogram [ECG] [EKG]
CPT/HCPCS: 93306

== ENCOUNTER 2024-12-30 20:27 | Observation (INO) | payer MEDICARE, SELFPAY ==
[2024-12-30] VITALS (12 sets, daily range): BP systolic 87–113; BP diastolic 53–73; PULSE 51–74; RESP 9–18; TEMP 36.5–36.6; O2SAT 96–99; BMI 27.8
--- NOTE | 2024-12-30 20:21 | ECG_ITS ---
APPROVED REPORT Exam: Resting ECG HR:51 bpm ECG Measurements Heart Rate 51 AXES CA 187 P 71 QRSd 107 QRS 58 QT 465 T 50 QTc 443 Conclusion Sinus bradycardia Normal axis Normal intervals No Electronically signed by : Zain Delgadillo, 01/01/2025 00:05:16
--- NOTE | 2024-12-30 20:24 | XR_ITS ---
PROCEDURE INFORMATION: Exam: XR Chest Exam date and time: 12/30/2024 8:37 PM Age: 69 years old Clinical indication: Pain; Chest pressure; Additional info: Cp TECHNIQUE: Imaging protocol: Radiologic exam of the chest. Views: 1 view. COMPARISON: CT ANGIO CHEST PE PROTOCOL 11/28/2024 11:29 AM FINDINGS: Lungs: There is a calcified granuloma within the left upper lung zone. No consolidation. Pleural spaces: Unremarkable. No pleural effusion. No pneumothorax. Heart/Mediastinum: Unremarkable. No cardiomegaly. Vasculature: Unremarkable. Bones/joints: Unremarkable. IMPRESSION: No acute findings.
--- NOTE | 2024-12-30 20:29 | HMH.EDGENADL ---
Discharge Plan Disposition Patient Disposition: Admitted Condition: Fair Clinical Impressions Clinical Impression: Bradycardia, SANTANA (acute kidney injury) Discharge ED Provider: Zain Delgadillo Adult HPI <Sara Álvarez APRN - Last Filed: 12/30/24 22:13> General Chief complaint: Dizziness Stated complaint: chest pain Time Seen by Provider: 12/30/24 20:39 History of Present Illness HPI narrative: patient is a 69-year-old male PMHx HFrEF, history of recent, multiple syncopal episodes, tobacco use, RADHA, chronic kidney disease, who presents to the ED via EMS for hypotension and fatigue. Upon arrival, patient states that over the past few weeks he had multiple syncopal episodes which led him to see cardiology, was advised to use a LifeVest however refused. He had a cardiac echo, is scheduled for cardiac cath. Upon further review of records, patient's EF on 12/15/2024 shows LVEF 30-35%. Related Data Home Medications ?Medication ?Instructions ?Recorded ?Confirmed gabapentin enacarbil 600 mg 600 mg PO HSP PRN LEG PAIN 11/30/24 12/31/24 tablet,extended release ([facility]) albuterol 90 mcg-budesonide 80 2 inh inhalation Q6HP PRN 12/31/24 12/31/24 mcg/actuation HFA aerosol inhaler shortness of breath or wheezing (Airsupra) hydrocodone 10 mg-acetaminophen 1 tab PO TID 12/31/24 12/31/24 325 mg tablet ropinirole 1 mg tablet 1 mg PO 0900,1500 12/31/24 12/31/24 ropinirole 1 mg tablet 2 mg PO HS 12/31/24 12/31/24 Previous Rx's ?Medication ?Instructions ?Recorded aspirin 81 mg tablet,delayed 81 mg PO DAILY #30 tabs 12/28/24 release (Adult Aspirin Regimen) metoprolol succinate 25 mg 12.5 mg (1/2 x 25 mg) PO DAILY #30 12/28/24 tablet,extended release 24 hr tabs (Toprol XL) Held on 12/31/24. Instructions: Resume on 01/07/25. Hold until you follow-up with your criminal investigator. rosuvastatin 40 mg tablet (Crestor) 40 mg PO DAILY #30 tabs 12/28/24 sacubitril 24 mg-valsartan 26 mg 1 tab PO BID #60 tabs 12/28/24 tablet (Entresto) Held on 12/31/24. Instructions: Resume on 01/07/25. Hold until you follow-up with your criminal investigator. Allergies Allergy/AdvReac Type Severity Reaction Status Date / Time Penicillins Allergy Mild Gastrointestinal Verified 12/28/24 11:27 Upset [facility] <Sara Álvarez APRN - Last Filed: 12/30/24 22:13> [facility] Disclaimer: The information contained in this section may have been updated after the patient was seen, as this information can be updated by other users. Medical History Asthma Encounter for screening for malignant neoplasm of lung Dyspnea on exertion History of smoking 30 or more pack years Dizziness RLS (restless legs syndrome) in the setting of chronic anemia, currently managed by PCP with ropinirole and gabapentin Surgical History No history of previous surgery Family History Other COPD (chronic obstructive pulmonary disease) Cancer Social History (Updated 12/31/24 @ 01:38 by Naima Padilla RN) Smoking Status: Never smoker alcohol intake: never substance use type: denies use current occupational status: disabled Travel in the last 8 weeks?: None household members: spouse housing: house marital status: Have you lived/traveled outside [place] in past 30 days?: No Contact w/someone who lives/traveled outside US past 30 days?: No Exposure to someone with infectious disease in past 14 days?: No Do you have a fever (greater than 100.4 F or 38 C)?: No Have you tested positive for COVID-19?: No Exposed to someone with COVID-19 in past 14 days?: No Do you have a sore throat?: No Do you have a cough?: No Do you have any weakness?: No Do you have any diarrhea?: No Are you experiencing any unusual bleeding?: No Do you have any muscle aches/pain?: No Do you have any abdominal pain?: No Are you experiencing loss of taste or smell?: No Other Medical History Have you received the Pneumonia Vaccine: No <Sara Álvarez APRN - Last Filed: 12/30/24 22:13> ROS Obtained: Yes Systems reviewed as appropriate & no additional complaints except as documented Physical Exam <Sara Álvarez APRN - Last Filed: 12/30/24 22:13> General General appearance: alert and other (lethargic ) Head Head exam: atraumatic Eye Eye exam: Present PERRL and EOMI Chest Chest inspection: Present normal inspection Respiratory Respiratory exam: Present normal lung sounds bilaterally Cardiovascular Cardiovascular exam: Present bradycardia Abdominal Exam Abdominal exam: Present soft Neurological Exam Neurological exam: Present alert and oriented X3; Absent motor sensory deficit Skin Skin exam: Present warm and dry Medical Decision Making <Sara Álvarez APRN - Last Filed: 12/30/24 22:13> Medical Records Screening: Per USPSTF and CDC recommendations, given the prevalence of disease in our region, it is our hospital?s policy to screen for HIV and viral Hepatitis for all patients aged 18 and over and those with ongoing risk factors. Pete Inquiry Pt receiving controlled substance: No Vital Signs: 12/30/24 20:33 12/30/24 20:40 12/30/24 20:42 Temperature 97.7 F 97.9 F Temperature Source Oral Oral Pulse Rate 51 L 66 Pulse Rate [Right] 58 L Respiratory Rate 17 13 18 Blood Pressure 91/55 L 112/69 Blood Pressure [Right Arm] 91/55 L Blood Pressure Mean [Right Arm] 67 Blood Pressure Source Blood Pressure Source [Right Arm] Automatic Cuff Blood Pressure Position Blood Pressure Position [Right Arm] Sitting 02 Sat by Pulse Oximetry 97 96 97 Oxygen Delivery Method Room Air Room Air Room Air 12/30/24 20:50 12/30/24 21:20 12/30/24 21:30 Temperature Temperature Source Pulse Rate 51 L 63 70 Pulse Rate [Right] Respiratory Rate 14 9 L 12 Blood Pressure 91/53 L 103/59 L 87/54 L Blood Pressure [Right Arm] Blood Pressure Mean [Right Arm] Blood Pressure Source Blood Pressure Source [Right Arm] Blood Pressure Position Blood Pressure Position [Right Arm] 02 Sat by Pulse Oximetry 99 98 98 Oxygen Delivery Method Room Air Room Air Room Air 12/30/24 21:41 12/30/24 21:50 12/30/24 22:00 Temperature Temperature Source Pulse Rate 74 67 72 Pulse Rate [Right] Respiratory Rate 16 16 12 Blood Pressure 112/64 94/65 L 97/67 L Blood Pressure [Right Arm] Blood Pressure Mean [Right Arm] Blood Pressure Source Blood Pressure Source [Right Arm] Blood Pressure Position Blood Pressure Position [Right Arm] 02 Sat by Pulse Oximetry 99 99 99 Oxygen Delivery Method Room Air Room Air Room Air 12/30/24 22:10 12/30/24 22:20 12/30/24 22:30 Temperature Temperature Source Pulse Rate 70 67 62 Pulse Rate [Right] Respiratory Rate 16 14 13 Blood Pressure 102/60 L 113/73 98/64 L Blood Pressure [Right Arm] Blood Pressure Mean [Right Arm] Blood Pressure Source Blood Pressure Source [Right Arm] Blood Pressure Position Blood Pressure Position [Right Arm] 02 Sat by Pulse Oximetry 97 99 96 Oxygen Delivery Method 12/31/24 00:43 12/31/24 01:00 Temperature 98 F Temperature Source Tympanic Pulse Rate 70 Pulse Rate [Right] Respiratory Rate 16 Blood Pressure 111/72 Blood Pressure [Right Arm] Blood Pressure Mean [Right Arm] Blood Pressure Source Automatic Cuff Blood Pressure Source [Right Arm] Blood Pressure Position Sitting Blood Pressure Position [Right Arm] 02 Sat by Pulse Oximetry Oxygen Delivery Method Room Air Room Air Lab Data Lab Results 12/30/24 20:15: WBC 8.4, RBC 3.95 L, Hgb 12.1 L, Hct 36.9 L, MCV 93.4, MCH 30.6, MCHC 32.8, RDW 13.8, Plt Count 355, MPV 10.3, Neut % (Auto) 68.8, Lymph % (Auto) 19.8, Mineral % (Auto) 8.8, Eos % (Auto) 1.5, Baso % (Auto) 0.7, Neut # (Auto) 5.8, Lymph # (Auto) 1.7, Mineral # (Auto) 0.7, Eos # (Auto) 0.1, Baso # (Auto) 0.1, PT 11.1, INR 1.00, APTT 24.2, Sodium 141, Potassium 4.3, Chloride 109 H, Carbon Dioxide 22, Anion Gap 14.3, BUN 32 H, Creatinine 2.70 H, Estimated GFR 23 L, Est GFR ( Amer) 28 L, Glucose 133 H, Calcium 8.7, Total Bilirubin 0.6, AST 31, ALT 22, Alkaline Phosphatase 82, Troponin I < 0.01, NT-Pro-B Natriuret Pep 250 H, Total Protein 7.4, Albumin 4.4, Globulin 3.0, Albumin/Globulin Ratio 1.5, Triglycerides 152 H, Cholesterol 148, LDL Cholesterol Direct 72.17 L, VLDL Cholesterol 30, HDL Cholesterol 41, Cholesterol/HDL Ratio 3.6 H, Plasma/Serum Alcohol < 10 12/30/24 21:38: Urine Color Yellow, Urine Appearance Clear, Urine pH 5.5, Ur Specific [place] <= 1.005, Urine Protein Negative, Urine Glucose (UA) Negative, Urine Ketones Negative, Urine Blood Negative, Urine Nitrate Negative, Urine Bilirubin Negative, Urine Urobilinogen 0.2, Ur Leukocyte Esterase Negative, Urine RBC Occasional, Urine WBC Occasional, Ur Squamous Epith Cells Occasional 12/30/24 21:40: Urine Opiates Screen Positive H, Urine Methadone Screen Negative, Ur Barbituates Screen Negative, Ur Phencyclidine Scrn Negative, Ur Amphetamines Screen Negative, U Benzodiazepines Scrn Negative, Urine Cocaine Screen Negative, U Marijuana (THC) Screen Negative 12/31/24 06:30 12/31/24 06:30 Orders (Tests/Meds): ED MEDICATIONS Discontinued Medications Generic Name Dose Route Start Last Admin Trade Name Freq PRN Reason Stop Dose Admin Acetaminophen 650 mg 12/31/24 00:40 Acetaminophen 325mg Tab PO 01/30/25 00:39 Q4HP PRN Fever or Mild Pain (1-3) Hydrocodone Bitart/Acetaminophen 1 tab 12/31/24 10:02 Hydrocodone 10mg/Apap 325mg Tab PO 01/30/25 10:01 TIDP PRN Moderate to Severe Pain (4-10) Lactated Ringer's 500 mls @ 250 mls/hr 12/30/24 23:58 12/31/24 03:10 Lactated Ringer's 500ml IV 12/31/24 01:57 0 mls/hr .Q2H ONE Infusion Lactated Ringer's 500 mls @ 250 mls/hr 12/31/24 10:59 12/31/24 13:53 Lactated Ringer's 1000 Ml Bag IV 12/31/24 12:58 Infused .Q2H ONE Infusion Iopamidol 140 ml 12/30/24 21:13 12/30/24 21:15 Iopamidol-370 (76%);100ml Bottle IV 12/30/24 21:14 140 ml ONCE ONE Administration Ropinirole HCl 1 mg 12/31/24 10:05 12/31/24 10:15 Ropinirole 1mg Tablet PO 01/30/25 10:04 1 mg 0900,1500 TERENCE Administration Ropinirole HCl 2 mg 12/31/24 21:00 Ropinirole 1mg Tablet PO 01/30/25 20:59 HS TERENCE Sodium Chloride 100 ml 12/30/24 21:13 12/30/24 21:15 0.9 % Sodium Chloride 50 Ml Vial IV 12/30/24 21:14 100 ml ONCE ONE Administration Sodium Chloride 10 ml 12/30/24 21:13 12/30/24 21:15 Sodium Chloride 0.9% 10ml Syr (Rad Only) IV 01/29/25 21:12 10 ml NEEDED PRN Administration Maintain IV Site Sodium Chloride 10 ml 12/31/24 12:55 Sodium Chloride 0.9% 10ml Flush Syringe IV 01/30/25 12:54 NEEDED PRN Maintain IV Site ORDERS Category Date Time Status CT angio chest - dissection Stat Cat Scan 12/30/24 20:[address] angio head Stat Cat Scan 12/30/24 20:[address] angio neck Stat Cat Scan 12/30/24 20:[address] head/brain wo con Stat Cat Scan 12/30/24 20:57 Completed CXR --portable [XR chest portable] Stat Exams 12/30/24 20:24 Completed POCUS Point of Care (ER Only) Stat Exams 12/30/24 23:29 Completed Activated Partial Thrombo Time Stat Lab 12/30/24 20:15 Completed BNP [NT Pro Brain Natriuretic Pep.] Stat Lab 12/30/24 20:15 Completed CBC w/Auto Diff [Complete Blood Count Auto Diff] Stat Lab 12/30/24 20:15 Completed CMP [Comprehensive Metabolic Panel] Stat Lab 12/30/24 20:15 Completed Drug Screen,Urine Stat Lab 12/30/24 21:40 Completed Ethyl Alcohol Stat Lab 12/30/24 20:15 Completed Lipid Panel Stat Lab 12/30/24 20:15 Completed Prothrombin Time INR Stat Lab 12/30/24 20:15 Completed Trop I [Troponin I] Stat Lab 12/30/24 20:15 Completed Troponin I Q3H Lab 12/30/24 23:30 Completed Troponin I Q3H Lab 12/31/24 06:30 Completed Urinalysis and Microscopic Stat Lab 12/30/24 21:38 Completed Medical Decision Narrative: In summary, patient is a 69-year-old male PMHx HFrEF, history of recent, multiple syncopal episodes, tobacco use, RADHA, chronic kidney disease, who presents to the ED via EMS for hypotension and fatigue. Upon arrival, patient states that over the past few weeks he had multiple syncopal episodes which led him to see cardiology, was advised to use a LifeVest however refused. He had a cardiac echo, is scheduled for cardiac cath. Upon further review of records, patient's EF on 12/15/2024 shows LVEF 30-35%. He states that he was cutting wood today when he suddenly felt overall fatigued, experienced a near syncopal episode. Patient called EMS, upon EMS arrival patient's systolic pressure was in the 70s, bradycardic into the 40s and 50s. Patient is alert, closing his eyes during conversation, awakens to verbal stimuli, states he just feels extremely fatigued. He is hypotensive and bradycardic. Denies any drug or alcohol use. Denies chest pain and denies shortness of breath. Further records reviewed, chest CTA on 11/28/2024 unremarkable for any evidence of PE. Myocardial perfusion scan on 12/14/2024 remarkable for a perfusion defect of the inferior and inferior septal LV reyna suggestive of reversible ischemia. On 11/28/2024 patient had 2 negative troponins. Discussed with patient and family we will perform labs, CT scan of the chest to rule out aortic dissection. While patient was being transported to CT scan, daughter advised that patient was slurring his words prior to arrival. Although NIH is negative, will perform stroke scans as well. CBC unremarkable for any leukocytosis, stable H&H. CMP remarkable for BUN 32, creatinine 2.70, GFR 23. This is a significant decrease in his kidney function as compared to 1 month ago. Troponin negative < 0.01. BNP 250. Alcohol negative. Pending scans, care transferred to attending, Dr. Delgadillo at 2210. <Zain Delgadillo DO - Last Filed: 12/31/24 16:15> Medical Records Medical records reviewed: Yes I reviewed the patient's medical records. Pete Inquiry Pete was queried for this patient: No Vital Signs: 12/30/24 20:33 12/30/24 20:40 12/30/24 20:42 Temperature 97.7 F 97.9 F Temperature Source Oral Oral Pulse Rate 51 L 66 Pulse Rate [Right] 58 L Respiratory Rate 17 13 18 Blood Pressure 91/55 L 112/69 Blood Pressure [Right Arm] 91/55 L Blood Pressure Mean [Right Arm] 67 Blood Pressure Source Blood Pressure Source [Right Arm] Automatic Cuff Blood Pressure Position Blood Pressure Position [Right Arm] Sitting 02 Sat by Pulse Oximetry 97 96 97 Oxygen Delivery Method Room Air Room Air Room Air 12/30/24 20:50 12/30/24 21:20 12/30/24 21:30 Temperature Temperature Source Pulse Rate 51 L 63 70 Pulse Rate [Right] Respiratory Rate 14 9 L 12 Blood Pressure 91/53 L 103/59 L 87/54 L Blood Pressure [Right Arm] Blood Pressure Mean [Right Arm] Blood Pressure Source Blood Pressure Source [Right Arm] Blood Pressure Position Blood Pressure Position [Right Arm] 02 Sat by Pulse Oximetry 99 98 98 Oxygen Delivery Method Room Air Room Air Room Air 12/30/24 21:41 12/30/24 21:50 12/30/24 22:00 Temperature Temperature Source Pulse Rate 74 67 72 Pulse Rate [Right] Respiratory Rate 16 16 12 Blood Pressure 112/64 94/65 L 97/67 L Blood Pressure [Right Arm] Blood Pressure Mean [Right Arm] Blood Pressure Source Blood Pressure Source [Right Arm] Blood Pressure Position Blood Pressure Position [Right Arm] 02 Sat by Pulse Oximetry 99 99 99 Oxygen Delivery Method Room Air Room Air Room Air 12/30/24 22:10 12/30/24 22:20 12/30/24 22:30 Temperature Temperature Source Pulse Rate 70 67 62 Pulse Rate [Right] Respiratory Rate 16 14 13 Blood Pressure 102/60 L 113/73 98/64 L Blood Pressure [Right Arm] Blood Pressure Mean [Right Arm] Blood Pressure Source Blood Pressure Source [Right Arm] Blood Pressure Position Blood Pressure Position [Right Arm] 02 Sat by Pulse Oximetry 97 99 96 Oxygen Delivery Method 12/31/24 00:43 12/31/24 01:00 Temperature 98 F Temperature Source Tympanic Pulse Rate 70 Pulse Rate [Right] Respiratory Rate 16 Blood Pressure 111/72 Blood Pressure [Right Arm] Blood Pressure Mean [Right Arm] Blood Pressure Source Automatic Cuff Blood Pressure Source [Right Arm] Blood Pressure Position Sitting Blood Pressure Position [Right Arm] 02 Sat by Pulse Oximetry Oxygen Delivery Method Room Air Room Air Lab Data Lab Results 12/30/24 20:15: WBC 8.4, RBC 3.95 L, Hgb 12.1 L, Hct 36.9 L, MCV 93.4, MCH 30.6, MCHC 32.8, RDW 13.8, Plt Count 355, MPV 10.3, Neut % (Auto) 68.8, Lymph % (Auto) 19.8, Mineral % (Auto) 8.8, Eos % (Auto) 1.5, Baso % (Auto) 0.7, Neut # (Auto) 5.8, Lymph # (Auto) 1.7, Mineral # (Auto) 0.7, Eos # (Auto) 0.1, Baso # (Auto) 0.1, PT 11.1, INR 1.00, APTT 24.2, Sodium 141, Potassium 4.3, Chloride 109 H, Carbon Dioxide 22, Anion Gap 14.3, BUN 32 H, Creatinine 2.70 H, Estimated GFR 23 L, Est GFR ( Amer) 28 L, Glucose 133 H, Calcium 8.7, Total Bilirubin 0.6, AST 31, ALT 22, Alkaline Phosphatase 82, Troponin I < 0.01, NT-Pro-B Natriuret Pep 250 H, Total Protein 7.4, Albumin 4.4, Globulin 3.0, Albumin/Globulin Ratio 1.5, Triglycerides 152 H, Cholesterol 148, LDL Cholesterol Direct 72.17 L, VLDL Cholesterol 30, HDL Cholesterol 41, Cholesterol/HDL Ratio 3.6 H, Plasma/Serum Alcohol < 10 12/30/24 21:38: Urine Color Yellow, Urine Appearance Clear, Urine pH 5.5, Ur Specific [place] <= 1.005, Urine Protein Negative, Urine Glucose (UA) Negative, Urine Ketones Negative, Urine Blood Negative, Urine Nitrate Negative, Urine Bilirubin Negative, Urine Urobilinogen 0.2, Ur Leukocyte Esterase Negative, Urine RBC Occasional, Urine WBC Occasional, Ur Squamous Epith Cells Occasional 12/30/24 21:40: Urine Opiates Screen Positive H, Urine Methadone Screen Negative, Ur Barbituates Screen Negative, Ur Phencyclidine Scrn Negative, Ur Amphetamines Screen Negative, U Benzodiazepines Scrn Negative, Urine Cocaine Screen Negative, U Marijuana (THC) Screen Negative Orders (Tests/Meds): ED MEDICATIONS Discontinued Medications Generic Name Dose Route Start Last Admin Trade Name Freq PRN Reason Stop Dose Admin Acetaminophen 650 mg 12/31/24 00:40 Acetaminophen 325mg Tab PO 01/30/25 00:39 Q4HP PRN Fever or Mild Pain (1-3) Hydrocodone Bitart/Acetaminophen 1 tab 12/31/24 10:02 Hydrocodone 10mg/Apap 325mg Tab PO 01/30/25 10:01 TIDP PRN Moderate to Severe Pain (4-10) Lactated Ringer's 500 mls @ 250 mls/hr 12/30/24 23:58 12/31/24 03:10 Lactated Ringer's 500ml IV 12/31/24 01:57 0 mls/hr .Q2H ONE Infusion Lactated Ringer's 500 mls @ 250 mls/hr 12/31/24 10:59 12/31/24 13:53 Lactated Ringer's 1000 Ml Bag IV 12/31/24 12:58 Infused .Q2H ONE Infusion Iopamidol 140 ml 12/30/24 21:13 12/30/24 21:15 Iopamidol-370 (76%);100ml Bottle IV 12/30/24 21:14 140 ml ONCE ONE Administration Ropinirole HCl 1 mg 12/31/24 10:05 12/31/24 10:15 Ropinirole 1mg Tablet PO 01/30/25 10:04 1 mg 0900,1500 TERENCE Administration Ropinirole HCl 2 mg 12/31/24 21:00 Ropinirole 1mg Tablet PO 01/30/25 20:59 HS TERENCE Sodium Chloride 100 ml 12/30/24 21:13 12/30/24 21:15 0.9 % Sodium Chloride 50 Ml Vial IV 12/30/24 21:14 100 ml ONCE ONE Administration Sodium Chloride 10 ml 12/30/24 21:13 12/30/24 21:15 Sodium Chloride 0.9% 10ml Syr (Rad Only) IV 01/29/25 21:12 10 ml NEEDED PRN Administration Maintain IV Site Sodium Chloride 10 ml 12/31/24 12:55 Sodium Chloride 0.9% 10ml Flush Syringe IV 01/30/25 12:54 NEEDED PRN Maintain IV Site ORDERS Category Date Time Status CT angio chest - dissection Stat Cat Scan 12/30/24 20:[address] angio head Stat Cat Scan 12/30/24 20:[address] angio neck Stat Cat Scan 12/30/24 20:[address] head/brain wo con Stat Cat Scan 12/30/24 20:57 Completed CXR --portable [XR chest portable] Stat Exams 12/30/24 20:24 Completed POCUS Point of Care (ER Only) Stat Exams 12/30/24 23:29 Completed Activated Partial Thrombo Time Stat Lab 12/30/24 20:15 Completed BNP [NT Pro Brain Natriuretic Pep.] Stat Lab 12/30/24 20:15 Completed CBC w/Auto Diff [Complete Blood Count Auto Diff] Stat Lab 12/30/24 20:15 Completed CMP [Comprehensive Metabolic Panel] Stat Lab 12/30/24 20:15 Completed Drug Screen,Urine Stat Lab 12/30/24 21:40 Completed Ethyl Alcohol Stat Lab 12/30/24 20:15 Completed Lipid Panel Stat Lab 12/30/24 20:15 Completed Prothrombin Time INR Stat Lab 12/30/24 20:15 Completed Trop I [Troponin I] Stat Lab 12/30/24 20:15 Completed Troponin I Q3H Lab 12/30/24 23:30 Completed Troponin I Q3H Lab 12/31/24 06:30 Completed Urinalysis and Microscopic Stat Lab 12/30/24 21:38 Completed ECG Data Tracing #1: I reviewed this ECG and interpreted as documented below: EKG personally interpreted by me demonstrates normal sinus bradycardia with a rate of 51 bpm, normal axis, no CO prolongation, narrow QRS, no QTc prolongation. No ST elevation or depression. No overt signs of ischemia or arrhythmia. No heart block. Medical Decision Narrative: In summary, patient is a 69-year-old male PMHx HFrEF, history of recent, multiple syncopal episodes, tobacco use, RADHA, chronic kidney disease, who presents to the ED via EMS for hypotension and fatigue. Upon arrival, patient states that over the past few weeks he had multiple syncopal episodes which led him to see cardiology, was advised to use a LifeVest however refused. He had a cardiac echo, is scheduled for cardiac cath. Upon further review of records, patient's EF on 12/15/2024 shows LVEF 30-35%. He states that he was cutting wood today when he suddenly felt overall fatigued, experienced a near syncopal episode. Patient called EMS, upon EMS arrival patient's systolic pressure was in the 70s, bradycardic into the 40s and 50s. Patient is alert, closing his eyes during conversation, awakens to verbal stimuli, states he just feels extremely fatigued. He is hypotensive and bradycardic. Denies any drug or alcohol use. Denies chest pain and denies shortness of breath. Further records reviewed, chest CTA on 11/28/2024 unremarkable for any evidence of PE. Myocardial perfusion scan on 12/14/2024 remarkable for a perfusion defect of the inferior and inferior septal LV reyna suggestive of reversible ischemia. On 11/28/2024 patient had 2 negative troponins. Discussed with patient and family we will perform labs, CT scan of the chest to rule out aortic dissection. While patient was being transported to CT scan, daughter advised that patient was slurring his words prior to arrival. Although NIH is negative, will perform stroke scans as well. CBC unremarkable for any leukocytosis, stable H&H. CMP remarkable for BUN 32, creatinine 2.70, GFR 23. This is a significant decrease in his kidney function as compared to 1 month ago. Troponin negative < 0.01. BNP 250. Alcohol negative. Pending scans, care transferred to attending, Dr. Delgadillo at 2210. I was consulted by the MORGAN, and we discussed the complexity of problems being addressed. I approved the treatment and management plan for this patient's care in the emergency department, thus performing a substantive portion of the medical decision making. Zain Delgadillo, I initially saw this patient midlevel provider. This gentleman has had recurrent syncope over the last several days and has a heart failure diagnosis with reduced ejection fraction of 30%. He tells me that he was outside working in the heat all day long today and he suffered a syncopal episode and was confused and fatigued and very weak. EMS found the patient to be hypotensive and bradycardic. On arrival to the emergency department the patient was bradycardic and hypotensive. His labs were personally interpreted by me and demonstrate acute kidney injury with a creatinine of 2.7. This is significantly increased from prior. EKG demonstrated bradycardia without evidence of heart block. We have not observed any evidence of heart block after several hours of continuous telemetry. I did perform bedside ultrasound of the patient's emergency ejection fraction. Given that he has a history of working in the heat today I decided to give the patient a 500 mL liter bolus of fluid. I had an interactive discussion with Dr. Escalante of the cardiology service and he stated that he felt this patient would benefit from admission for continuous telemetry and pacemaker installation. I ultimately had an interactive discussion with the internal medicine service who agreed to evaluate the patient the emergency department. At the discussion of their evaluation they have agreed to admit the patient to their service and accept primary responsibility the patient moving forward. Procedures <Zain Delgadillo DO - Last Filed: 12/31/24 16:15> Miscellaneous Procedure Procedure Performed: Limited cardiac ultrasound note Indication: Symptomatic bradycardia Identified cardiac views: [Cardiac parasternal long axis] [Cardiac parasternal short axis] [Cardiac apical four-chamber] [Cardiac subxiphoid] Findings: Cardiac activity: Present Gross wall motion: Normal Pericardial effusion: Absent Right heart strain: Absent Impression: EPSS 0.8 and 1.1 indicative of heart failure with reduced ejection fraction consistent with patient's reported history Images were saved to permanent archive This study was technically adequate CPT: 69223 This study was performed by me and I personally interpreted all images/videos. Based on my clinical judgment these images were adequate and did not necessitate further imaging. Critical Care <Sara Álvarez APRN - Last Filed: 12/30/24 22:13> Critical Care Time Critical Care Time: No
--- NOTE | 2024-12-30 20:30 | PC.NURSE ---
Pt placed on pads, crash cart in room, family at bedside.
[2024-12-30 20:31] LABS: Hematocrit 36.9 % (42.0-52.0); Hemoglobin 12.1 g/dL (14.1-18.0); Immature Granulocytes % 0.4 %; Mean Corpuscular HGB Conc 32.8 g/dL (31.8-35.4); Mean Corpuscular Hemoglobin 30.6 pg (27.0-31.2); Mean Corpuscular Volume 93.4 fl (80-94); Nucleated Red Blood Cells % 0 %; Platelet Count 355 K/mm3 (142-424); Red Blood Count 3.95 M/mm3 (4.60-6.20); Red Cell Distribution Width-SD 47.3 fL; White Blood Count 8.4 K/mm3 (4.8-10.8)
[2024-12-30 20:36] LABS: Alanine Aminotransferase 22 U/L (12-78); Albumin Level 4.4 g/dl (3.5-5.0); Albumin/Globulin Ratio 1.5 (1.1-1.8); Alkaline Phosphatase 82 U/L (38-126); Anion Gap 14.3 mEq/L (5-15); Aspartate Amino Transferase 31 U/L (17-59); Bilirubin,Total 0.6 mg/dl (0.2-1.3); Blood Urea Nitrogen 32 mg/dl (9-20); Calcium 8.7 mg/dl (8.4-10.2); Carbon Dioxide 22 mmol/L (22.0-30.0); Chloride 109 mmol/L (98-107); Creatinine,Serum 2.70 mg/dl (0.66-1.25); Estimated Glomerular Filt Rate 23 ml/min (>60); GFR (African American) 28 ML/MIN (>60); Globulin 3.0 g/dL (1.3-3.2); Glucose 133 mg/dl (74-100); Potassium 4.3 mmoL/L (3.5-5.1); Sodium 141 mmol/L (136-145); Total Protein,Serum 7.4 g/dl (6.3-8.2)
--- NOTE | 2024-12-30 20:41 | CT_ITS ---
PROCEDURE INFORMATION: Exam: CTA Chest With Contrast Exam date and time: 12/30/2024 9:16 PM Age: 69 years old Clinical indication: Shortness of breath and other: Possible stroke; Additional info: Cp SOA bradycardia TECHNIQUE: Imaging protocol: Computed tomographic angiography of the chest with contrast. Exam focused on the arteries. 3D rendering (Not supervised by radiologist): MIP and/or 3D reconstructed images were created by the technologist. Radiation optimization: All CT scans at this facility use at least one of these dose optimization techniques: automated exposure control; mA and/or kV adjustment per patient size (includes targeted exams where dose is matched to clinical indication); or iterative reconstruction. Contrast material: ISO; Contrast volume: 70 ml; Contrast route: INTRAVENOUS (IV); COMPARISON: CT ANGIO CHEST PE PROTOCOL 11/28/2024 11:29 AM FINDINGS: Pulmonary arteries: Normal. No pulmonary emboli. Aorta: Unremarkable. No aortic aneurysm. No aortic dissection. Lungs: There is a left upper lobe calcified granuloma. There is a 3 mm right lower lobe nodule posterolaterally series 7, image 54. No consolidation. No mass. Pleural spaces: Unremarkable. No pneumothorax. No pleural effusion. Heart: Unremarkable. No cardiomegaly. No pericardial effusion. Lymph nodes: Unremarkable. No enlarged lymph nodes. Kidneys: Incompletely imaged cortical cyst of the upper pole left kidney is noted. Bones/joints: There are moderate degenerative changes of the thoracic spine. No acute fracture. Soft tissues: Unremarkable. IMPRESSION: 1. No acute findings. No pulmonary embolus or acute aortic finding. 2. 3 mm right lower lobe pulmonary nodule. For patients at low risk (minimal or absent history of smoking and of other known risk factors), no routine follow-up is indicated. For patients at high risk (history of smoking or of other known risk factors), consider optional CT Chest at 12 months. (Reference: Reji) COMMENTS: Consistent with the [employer]'s Incidental Findings Committee white paper (J Am Jackson Radiol 2018): Any incidental renal lesion less than 1 cm or classified as too small to characterize, or any incidental cystic renal lesion characterized as simple-appearing, is likely benign. No follow-up imaging is recommended for these lesions per consensus recommendations based on imaging criteria. REFERENCES: Reji Hair et al. Guidelines for Management of Incidental Pulmonary Nodules Detected on CT Images: From the Fleischner Society 2017. Radiology. 2017;284(1):228-243.
--- NOTE | 2024-12-30 20:42 | PC.NURSE ---
Pt Deb at bedside,states pt had been cutting wood all day, came home took a shower and went to friends to play cards. While playing cards his friends stated he began to slur his words, became diaphoretic, and weak. 911 was called pt unable to walk they wheeled him out of home in a chair.
[2024-12-30 20:48] LABS: NT Pro Brain Natriuretic Pep. 250 pg/mL (0-125)
[2024-12-30 20:54] LABS: Troponin I < 0.01 ng/ml (0.00-0.034)
--- NOTE | 2024-12-30 20:57 | CT_ITS ---
PROCEDURE INFORMATION: Exam: CTA Neck With Contrast Exam date and time: 12/30/2024 9:11 PM Age: 69 years old Clinical indication: Other: Possible stroke TECHNIQUE: Imaging protocol: Computed tomographic angiography of the neck with contrast. Exam focused on the cervical segments of the vasculature. 3D rendering (Not supervised by radiologist): MIP and/or 3D reconstructed images were created by the technologist. Radiation optimization: All CT scans at this facility use at least one of these dose optimization techniques: automated exposure control; mA and/or kV adjustment per patient size (includes targeted exams where dose is matched to clinical indication); or iterative reconstruction. Contrast material: ISO; Contrast volume: 70 ml; Contrast route: INTRAVENOUS (IV); COMPARISON: CT ANGIO NECK 11/28/2024 11:25 AM FINDINGS: Right common carotid artery: No stenosis. No dissection or occlusion. Right internal carotid artery: No stenosis of the extracranial segment. No dissection or occlusion. Right external carotid artery: No occlusion or stenosis of the origin. Left common carotid artery: No stenosis. No dissection or occlusion. Left internal carotid artery: No stenosis of the extracranial segment. No dissection or occlusion. Left external carotid artery: No occlusion or stenosis of the origin. Right vertebral artery: No stenosis. No dissection or occlusion. Left vertebral artery: No stenosis. No dissection or occlusion. Soft tissues: Normal. No significant soft tissue swelling. Bones/joints: Moderate to severe multilevel degenerative disc changes and facet arthropathy throughout the cervical spine. No acute fracture or subluxation. Lungs: Small calcified granuloma in the left upper lobe. Upper lungs are otherwise clear. IMPRESSION: No carotid or vertebral artery stenosis or occlusion. Degenerative changes of the cervical spine as described. REFERENCES: NASCET CRITERIA. The degree of stenosis in the cervical segment of the internal carotid artery is based on NASCET criteria. Normal is no stenosis. Mild is less than 50% stenosis. Moderate is 50-69% stenosis. Severe is 70% to 99% stenosis. Total occlusion is no detectable patent lumen.
--- NOTE | 2024-12-30 20:57 | CT_ITS ---
PROCEDURE INFORMATION: Exam: CTA Head With Contrast, Arteriography Exam date and time: 12/30/2024 9:11 PM Age: 69 years old Clinical indication: Other: Possible stroke TECHNIQUE: Imaging protocol: Computed tomographic angiography of the head with contrast. Exam focused on the arteries. 3D rendering (Not supervised by radiologist): MIP and/or 3D reconstructed images were created by the technologist. Radiation optimization: All CT scans at this facility use at least one of these dose optimization techniques: automated exposure control; mA and/or kV adjustment per patient size (includes targeted exams where dose is matched to clinical indication); or iterative reconstruction. Contrast material: ISO; Contrast volume: 70 ml; Contrast route: INTRAVENOUS (IV); COMPARISON: CT ANGIO HEAD 11/28/2024 11:25 AM FINDINGS: ANTERIOR CIRCULATION: Right internal carotid artery: Intracranial segment is patent with no significant stenosis. No aneurysm. Right middle cerebral artery: No occlusion or significant stenosis. No aneurysm. Right anterior cerebral artery: No occlusion or significant stenosis. No aneurysm. Left internal carotid artery: Intracranial segment is patent with no significant stenosis. No aneurysm. Left middle cerebral artery: No occlusion or significant stenosis. No aneurysm. Left anterior cerebral artery: No occlusion or significant stenosis. No aneurysm. POSTERIOR CIRCULATION: Right vertebral artery: No occlusion or significant stenosis. No aneurysm. Left vertebral artery: No occlusion or significant stenosis. No aneurysm. Basilar artery: No occlusion or significant stenosis. No aneurysm. Right posterior cerebral artery: No occlusion or significant stenosis. No aneurysm. Left posterior cerebral artery: No occlusion or significant stenosis. No aneurysm. Brain: No definite mass, mass effect, or midline shift. Cerebral ventricles: No ventriculomegaly. Bones/joints: Unremarkable. No acute fracture. Soft tissues: Unremarkable. IMPRESSION: No large vessel stenosis or occlusion.
--- NOTE | 2024-12-30 20:57 | CT_ITS ---
PROCEDURE INFORMATION: Exam: CT Head Without Contrast Exam date and time: 12/30/2024 9:06 PM Age: 69 years old Clinical indication: Other: Possible stroke TECHNIQUE: Imaging protocol: Computed tomography of the head without contrast. Radiation optimization: All CT scans at this facility use at least one of these dose optimization techniques: automated exposure control; mA and/or kV adjustment per patient size (includes targeted exams where dose is matched to clinical indication); or iterative reconstruction. COMPARISON: CT ANGIO HEAD 11/28/2024 11:25 AM FINDINGS: Brain: Normal. No hemorrhage. Unremarkable white matter. No mass effect. Cerebral ventricles: No ventriculomegaly. Paranasal sinuses: Visualized sinuses are unremarkable. No fluid levels. Mastoid air cells: Visualized mastoid air cells are well aerated. Bones: Unremarkable. No acute fracture. Soft tissues: Unremarkable. IMPRESSION: No acute intracranial abnormality.
[2024-12-30 21:11] LABS: Cholesterol 148 mg/dl (140-200); HDL Cholesterol 41 mg/dl (40-60); Triglycerides 152 mg/dl (30-150)
[2024-12-30 21:12] LABS: Activated Partial Thrombo Time 24.2 seconds (22.8-30.6); INR 1.00 (0.9-1.1); Prothrombin Time 11.1 seconds (10.1-12.5)
[2024-12-30] MEDS: 0.9 % SODIUM CHLORIDE 50 ML VIAL 100 ML IV (21:15)
[2024-12-30] MEDS: IOPAMIDOL-370 (76%);100ML BOTTLE 140 ML IV (21:15)
[2024-12-30] MEDS: SODIUM CHLORIDE 0.9% 10ML SYR (RAD ONLY) 10 ML IV (21:15)
--- NOTE | 2024-12-30 21:34 | PC.NURSE ---
Patient in room and needs nothing at this time.
[2024-12-30 21:42] LABS: Microscopic, Urine URINE MICROSCOPIC (MICROSCOPIC)
[2024-12-30 21:48] LABS: Bilirubin,Urine Negative (Negative); Color,Urine YELLOW (Yellow); Glucose,Urine (UA) Negative (Negative); Ketones,Urine Negative (Negative); Leukocyte Esterase,Urine Negative (Negative); PH,Urine 5.5 (5.0-8.5); Protein,Urine Negative (Negative); Specific Gravity, Urine <= 1.005 (1.005-1.030); Urobilinogen,Urine 0.2 EU/dl (0.2)
[2024-12-30 21:57] LABS: Amphetamine/Metha Screen,Urine Negative ng/ml (<1000); Barbiturates Screen,Urine Negative ng/ml (<200)
[2024-12-30 21:58] LABS: Benzodiazepines Screen,Urine Negative ng/ml (<200)
[2024-12-30 22:00] LABS: Methadone Screen,Urine Negative ng/ml (<300); Phencyclidine Screen,Urine Negative ng/ml (<25)
[2024-12-30 22:01] LABS: Opiate Screen,Urine Positive ng/ml (<300)
[2024-12-30 22:13] LABS: RBC,Urine Occasional #/hpf (0-3); Squamous Epithelial Cell,Urine Occasional #/hpf (0-5); WBC,Urine Occasional #/hpf (0-3)
--- NOTE | 2024-12-30 22:45 | PC.NURSE ---
Spoke with pt and family, advised we were waiting on pt scnas to come back, he would be admitted here or transferred for his symptomatic bradycardia and renal failure.
[2024-12-31] VITALS (11 sets, daily range): BP systolic 111–143; BP diastolic 63–77; PULSE 45–97; RESP 12–16; TEMP 36.4–36.8; O2SAT 95–99; BMI 26.9
--- NOTE | 2024-12-31 01:12 | P.HP_ITS ---
<Statement entered by Juan Luis Nelson MD - 01/02/25 12:07> Personally evaluated patient and agree with the plan of care as outlined by the VICE PRESIDENT UNDERWRITING. History of Present Illness *Admission Date: 12/31/24 *Reason for visit:: Dizziness and syncope *History of present illness: This is a 69-year-old male with a past medical history of HFrEF, tobacco abuse, RLS, chronic pain who presents to the emergency department today with dizziness and syncope. He is being followed by cardiology's office for HFrEF with a EF of 30%. Has been told on previous occasions that he needs to wear LifeVest but has refused. Saw Dr. Lemus in office on 12/28/2024 with complaints of dizziness and syncope. Future plans for LHC secondary to abnormal Irene Myoview stress testing and abnormal EKG. Started on Entresto twice daily at that time as well as aspirin and Crestor. He reports today he was outside working in the heat when he developed recurrent syncope and dizziness. EMS was called and he was found to be hypotensive with systolic in the 70s as well as bradycardia in the 50s. No heart block noted on EKG by EMS or by ER here. Upon arrival to the emergency department he had slow improvement in vital signs with continued complaints of dizziness and lethargy. Emergency department workup notable for an elevated creatinine of 2.70 with a baseline of 1.5. Cardiology was consulted and recommends hospitalization through the weekend for likely LHC and pacemaker placement on Thursday. He is admitted to the hospital service at this time. [facility] Disclaimer: The information contained in this section may have been updated after the patient was seen, as this information can be updated by other users. Medical History Asthma Encounter for screening for malignant neoplasm of lung Dyspnea on exertion History of smoking 30 or more pack years Dizziness RLS (restless legs syndrome) in the setting of chronic anemia, currently managed by PCP with ropinirole and gabapentin Surgical History No history of previous surgery Family History Other COPD (chronic obstructive pulmonary disease) Cancer Social History Smoking Status: Never smoker alcohol intake: current alcohol intake frequency: holidays/special occasions only substance use type: denies use current occupational status: disabled Travel in the last 8 weeks?: None household members: spouse housing: house marital status: Have you lived/traveled outside [place] in past 30 days?: No Contact w/someone who lives/traveled outside US past 30 days?: No Exposure to someone with infectious disease in past 14 days?: No Do you have a fever (greater than 100.4 F or 38 C)?: No Have you tested positive for COVID-19?: No Exposed to someone with COVID-19 in past 14 days?: No Do you have a sore throat?: No Do you have a cough?: No Do you have any weakness?: No Do you have any diarrhea?: No Are you experiencing any unusual bleeding?: No Do you have any muscle aches/pain?: No Do you have any abdominal pain?: No Are you experiencing loss of taste or smell?: No Other Medical History Have you received the Pneumonia Vaccine: No Review of Systems Review of Systems Review of systems:: pertinent systems reviewed and negative unless documented below Review of systems (narrative): Negative except for HPI Meds Home Medications and Allergies Home Medications ?Medication ?Instructions ?Recorded ?Confirmed ?Type gabapentin enacarbil 600 mg 600 mg PO HS PRN 11/30/24 12/28/24 History tablet,extended release ([facility]) ropinirole 1 mg tablet See Rx Instructions .Route 0 12/15/24 12/28/24 Rx .COMPLEX #120 tabs hydrocodone 10 mg-acetaminophen 1 tab PO TID chronic p ain #90 tabs 12/23/24 12/28/24 Rx 325 mg tablet albuterol 90 mcg-budesonide 80 2 inh inhalation .q6 ND N shortness 12/26/24 12/28/24 Rx mcg/actuation HFA aerosol inhaler of breath or wheezin g #10.7 grams (Airsupra) aspirin 81 mg tablet,delayed 81 mg PO DAILY #30 tabs 0 12/28/24 12/28/24 Rx release (Adult Aspirin Regimen) metoprolol succinate 25 mg 12.5 mg (1/2 x 25 mg) PO DA JIA #30 12/28/24 12/28/24 Rx tablet,extended release 24 hr tabs (Toprol XL) rosuvastatin 40 mg tablet (Crestor) 40 mg PO DAILY #30 tabs 12/28/24 12/28/24 Rx sacubitril 24 mg-valsartan 26 mg 1 tab PO BID #60 tabs 12/28/24 12/28/24 Rx tablet (Entresto) New Prescriptions to Start Prescriptions: Allergies Allergy/AdvReac Type Severity Reaction Status Date / Time Penicillins Allergy Mild Gastrointestinal Verified 12/28/24 11:27 Upset Exam Data for Last 24 hours Vital signs and Labs for Last 24 Hours: Temp Pulse Resp BP Pulse Ox O2 Del Method 98 F 70 16 111/72 96 Room Air 12/31/24 00:43 12/31/24 00:43 12/31/24 00:43 12/31/24 00:43 12/30/24 22:30 12/31/24 00:43 Laboratory Results - last 24 hr 12/30/24 20:15: WBC 8.4, RBC 3.95 L, Hgb 12.1 L, Hct 36.9 L, MCV 93.4, MCH 30.6, MCHC 32.8, RDW 13.8, Plt Count 355, MPV 10.3, Neut % (Auto) 68.8, Lymph % (Auto) 19.8, Oliver % (Auto) 8.8, Eos % (Auto) 1.5, Baso % (Auto) 0.7, Neut # (Auto) 5.8, Lymph # (Auto) 1.7, Oliver # (Auto) 0.7, Eos # (Auto) 0.1, Baso # (Auto) 0.1, PT 11.1, INR 1.00, APTT 24.2, Sodium 141, Potassium 4.3, Chloride 109 H, Carbon Dioxide 22, Anion Gap 14.3, BUN 32 H, Creatinine 2.70 H, Estimated GFR 23 L, Est GFR ( Amer) 28 L, Glucose 133 H, Calcium 8.7, Total Bilirubin 0.6, AST 31, ALT 22, Alkaline Phosphatase 82, Troponin I < 0.01, NT-Pro-B Natriuret Pep 250 H, Total Protein 7.4, Albumin 4.4, Globulin 3.0, Albumin/Globulin Ratio 1.5, Triglycerides 152 H, Cholesterol 148, LDL Cholesterol Direct 72.17 L, VLDL Cholesterol 30, HDL Cholesterol 41, Cholesterol/HDL Ratio 3.6 H, Plasma/Serum Alcohol < 10 12/30/24 21:38: Urine Color Yellow, Urine Appearance Clear, Urine pH 5.5, Ur Specific [place] <= 1.005, Urine Protein Negative, Urine Glucose (UA) Negative, Urine Ketones Negative, Urine Blood Negative, Urine Nitrate Negative, Urine Bilirubin Negative, Urine Urobilinogen 0.2, Ur Leukocyte Esterase Negative, Urine RBC Occasional, Urine WBC Occasional, Ur Squamous Epith Cells Occasional 12/30/24 21:40: Urine Opiates Screen Positive H, Urine Methadone Screen Negative, Ur Barbituates Screen Negative, Ur Phencyclidine Scrn Negative, Ur Amphetamines Screen Negative, U Benzodiazepines Scrn Negative, Urine Cocaine Screen Negative, U Marijuana (THC) Screen Negative I & O for Last 24 hours: Intake & Output 12/28/24 12/29/24 12/30/24 12/31/24 23:59 23:59 23:59 23:59 Weight 83.007 kg Constitutional Constitutional: no acute distress *Routine HEENT Exam Head: Present normocephalic Eye: Present EOMI and PERRL ENT: Present mucous membranes moist *Routine Neck Exam Neck: Present supple; Absent lymphadenopathy *Routine Respiratory Exam Respiratory: Present CTA bilaterally *Routine Cardiovascular Exam Cardiovascular: Present RRR *Routine Abdominal Exam Abdominal: Present soft and normoactive bowel sounds; Absent tenderness *Routine Rectal Exam Rectal:: deferred *Routine Genitalia Exam Genitalia:: deferred *Routine Extremities Exam Extremities: Absent cyanosis, clubbing or edema *Routine Skin Exam Skin: Present warm; Absent rash *Routine Neurological Exam Neurological: Present alert and oriented X3 Assessment and Plan *Assessment and plan (1) SANTANA (acute kidney injury): Status: Acute Category: Medical Code(s): N17.9 - Acute kidney failure, unspecified (2) Bradycardia: Status: Acute Category: Medical Code(s): R00.1 - Bradycardia, unspecified (3) HFrEF (heart failure with reduced ejection fraction): Status: Acute Category: Medical Code(s): I50.20 - Unspecified systolic (congestive) heart failure (4) RADHA (obstructive sleep apnea): Status: Chronic Category: Medical Code(s): G47.33 - Obstructive sleep apnea (adult) (pediatric) (5) Chronic kidney disease: Status: Chronic Qualifiers: Chronic kidney disease stage: stage 1 Qualified Code(s): N18.1 - Chronic kidney disease, stage 1 Category: Medical Code(s): N18.9 - Chronic kidney disease, unspecified Plan #SANTANA superimposed on CKD stage IIIb Creatinine of 2.7 with a baseline of around 1.5. Patient was working out in the heat today and became dizzy and syncopal. SANTANA likely prerenal in nature. Small fluid challenge given via IV fluids. Will be judicious in administering anything further given HFrEF Monitor urine output Initial blood pressure 70-80 systolic with improvement after IV fluid administration. Normotensive at this time #Dizziness and syncope #Bradycardia Sinus bradycardia noted, no heart block Will hold beta-gerardo at this time. Was placed on event monitor by outpatient cardiology last week Will see if we can review cardiac rhythm strips from this visit Cardiology consulted, patient will need to be admitted through the weekend for pacemaker placement on Thursday Continue cardiac telemetry #HFrEF Last echocardiogram with an EF of 30%. Also had abnormal Irene stress test Future plans for LHC per cardiology outpatient note, likely to be done while inpatient this hospitalization Cardiology to see patient on Thursday 1500 mL fluid restrict Low-sodium diet Received IV fluids in the emergency department for SANTANA and hypotension. Will defer further fluids at this time Will hold Entresto given patient's initial hypotension upon arrival Continue aspirin and Crestor #Asthma Continue as needed bronchodilators
[2024-12-31 02:15] LABS: Troponin I < 0.01 ng/ml (0.00-0.034)
--- NOTE | 2024-12-31 02:30 | PC.NURSE ---
Patient arrived to floor via wheelchair from ED at 01:09.
[2024-12-31] MEDS: RINGERS SOLUTION,LACTATED 500 ML 250 ML IV (03:00)
--- NOTE | 2024-12-31 03:10 | PC.NURSE ---
Order for fluids was given as bolus in Er by Dr Delgadillo.
--- NOTE | 2024-12-31 03:24 | PC.NURSE ---
Pt came up from ER. With a order for LR 500ml at 250ml/hr to be given. Called ER Nurse Dhara and ask if it had been given. waited 30 mins with no answer. Called the [facility] BREANA Thorpe and she told me to give it. After about 10 minutes the Nurse from the ER called back and said it had been give. Called Diana TOUSSAINT back and Let her know that the Pt got about 80 ml of LR. Stopped the fluids at that time. She it was fine that he had received about 40ml of LR extra. Pt is stable with out any distress. LESLIE VELASCO RN
[2024-12-31 07:17] LABS: Hematocrit 37.8 % (42.0-52.0); Hemoglobin 12.3 g/dL (14.1-18.0); Immature Granulocytes % 0.2 %; Mean Corpuscular HGB Conc 32.5 g/dL (31.8-35.4); Mean Corpuscular Hemoglobin 30.5 pg (27.0-31.2); Mean Corpuscular Volume 93.8 fl (80-94); Nucleated Red Blood Cells % 0 %; Platelet Count 318 K/mm3 (142-424); Red Blood Count 4.03 M/mm3 (4.60-6.20); Red Cell Distribution Width-SD 49.5 fL; White Blood Count 6.1 K/mm3 (4.8-10.8)
[2024-12-31 08:11] LABS: Anion Gap 13.6 mEq/L (5-15); Blood Urea Nitrogen 30 mg/dl (9-20); Calcium 8.4 mg/dl (8.4-10.2); Carbon Dioxide 22 mmol/L (22.0-30.0); Chloride 110 mmol/L (98-107); Creatinine Clearance Estimated 41 mL/min (50-200); Creatinine,Serum 1.90 mg/dl (0.66-1.25); Estimated Glomerular Filt Rate 35 ml/min (>60); GFR (African American) 43 ML/MIN (>60); Glucose 102 mg/dl (74-100); Potassium 4.6 mmoL/L (3.5-5.1); Sodium 141 mmol/L (136-145)
[2024-12-31 08:17] LABS: Troponin I < 0.01 ng/ml (0.00-0.034)
--- NOTE | 2024-12-31 09:59 | HMH.PHAINT1 ---
Pharmacy Intervention Comments: MEDICATION RECONCILIATION COMPLETE USING EXTERNAL PHARMACY FILL HISTORY, IFTIKHAR REPORT, AND RECENT CARDIOLOGY AND PULMONOLOGY OFFICE VISIT NOTES.
[2024-12-31] MEDS: ROPINIROLE 1MG TABLET 1 MG PO (10:15)
[2024-12-31] MEDS: LACTATED RINGERS 1000ML 500 ML 250 ML IV (11:12)
[2024-12-31 11:13] LABS: Creatine Kinase 165 U/L (55-170)
--- NOTE | 2024-12-31 14:00 | EXP.DC.SUM ---
General Admission date:: 12/31/24 HPI HPI HPI: This is a 69-year-old male with a past medical history of HFrEF, tobacco abuse, RLS, chronic pain who presents to the emergency department today with dizziness and syncope. He is being followed by cardiology's office for HFrEF with a EF of 30%. Has been told on previous occasions that he needs to wear LifeVest but has refused. Saw Dr. Lemus in office on 12/28/2024 with complaints of dizziness and syncope. Future plans for LHC secondary to abnormal Irene Myoview stress testing and abnormal EKG. Started on Entresto twice daily at that time as well as aspirin and Crestor. He reports today he was outside working in the heat when he developed recurrent syncope and dizziness. EMS was called and he was found to be hypotensive with systolic in the 70s as well as bradycardia in the 50s. No heart block noted on EKG by EMS or by ER here. Upon arrival to the emergency department he had slow improvement in vital signs with continued complaints of dizziness and lethargy. Emergency department workup notable for an elevated creatinine of 2.70 with a baseline of 1.5. Cardiology was consulted and recommends hospitalization through the weekend for likely LHC and pacemaker placement on Thursday. He is admitted to the hospital service at this time. Hospital Course Hospital Course Hospital Course: Adi Brantley is a 69-year-old male who presented with dizziness, presyncope while working outside in the heat. EMS found his systolics to be in the 70s, with heart rate in the 50s with no heart block. Patient was admitted for evaluation of the same. #Presyncope #Hypotension #Dizziness #SANTANA on CKD stage IIIa ? Patient states he has been working outside in the heat cutting [employer], states does not drink much water. He has felt dizzy over the past few days and eventually felt like he was about to pass out outside. ? EMS found his systolics to be in the 70s, improved with fluid resuscitation. ? Initial creatinine 2.7, improved to 1.4 with IV fluids. Patient tolerating p.o. intake. ? Today, patient states he feels much better. Orthostatic vitals normal. No chest pain, shortness of breath, dizziness. Ambulating without issues. ? Patient does have a history of HFrEF 30%, has previously refused LifeVest. No events on telemetry. Low suspicion for cardiogenic presyncope given prodromal symptoms and severe dehydration as etiology. ? Discussed with Dr. Escalante, who agreed patient's presyncope more likely related to dehydration. Advised patient to follow-up closely within next week. Being scheduled for an LHC in the next week for HFrEF. ? Encourage patient to stay hydrated and avoid heat for the next few days. #Chronic HFrEF #Sinus bradycardia ? Patient has a known LVEF 30%, recently had an abnormal Myoview. Cardiology is planning for LHC in the next week. ? No signs of volume overload. Sinus bradycardia improved, heart rate in 70s currently. No evidence of acute ischemia, heart block on EKG. Patient asymptomatic. ? Will hold metoprolol succinate, Entresto for now due to presenting hypotension, and SANTANA. Will follow-up with cardiology within 1 week to discuss restarting his medications. ? Continue home aspirin, statin. #Restless leg syndrome ? Continue home ropinirole 3 mg. #Asthma ? Continue home Airsupra. Total time spent on discharge: 32 minutes on chart review, counseling, documentation, and direct care with patient. Exam Data for Last 24 hours Vital signs and Labs for Last 24 Hours: Temp Pulse Resp BP Pulse Ox O2 Del Method O2 Flow Rate 98.0 F 73 16 140/71 97 Room Air 2 12/31/24 11:59 12/31/24 11:59 12/31/24 11:59 12/31/24 11:59 12/31/24 13:07 12/31/24 13:07 12/31/24 11:00 Laboratory Results - last 24 hr 12/30/24 20:15: WBC 8.4, RBC 3.95 L, Hgb 12.1 L, Hct 36.9 L, MCV 93.4, MCH 30.6, MCHC 32.8, RDW 13.8, Plt Count 355, MPV 10.3, Neut % (Auto) 68.8, Lymph % (Auto) 19.8, Haskell % (Auto) 8.8, Eos % (Auto) 1.5, Baso % (Auto) 0.7, Neut # (Auto) 5.8, Lymph # (Auto) 1.7, Haskell # (Auto) 0.7, Eos # (Auto) 0.1, Baso # (Auto) 0.1, PT 11.1, INR 1.00, APTT 24.2, Sodium 141, Potassium 4.3, Chloride 109 H, Carbon Dioxide 22, Anion Gap 14.3, BUN 32 H, Creatinine 2.70 H, Estimated GFR 23 L, Est GFR ( Amer) 28 L, Glucose 133 H, Calcium 8.7, Total Bilirubin 0.6, AST 31, ALT 22, Alkaline Phosphatase 82, Troponin I < 0.01, NT-Pro-B Natriuret Pep 250 H, Total Protein 7.4, Albumin 4.4, Globulin 3.0, Albumin/Globulin Ratio 1.5, Triglycerides 152 H, Cholesterol 148, LDL Cholesterol Direct 72.17 L, VLDL Cholesterol 30, HDL Cholesterol 41, Cholesterol/HDL Ratio 3.6 H, Plasma/Serum Alcohol < 10 12/30/24 21:38: Urine Color Yellow, Urine Appearance Clear, Urine pH 5.5, Ur Specific [place] <= 1.005, Urine Protein Negative, Urine Glucose (UA) Negative, Urine Ketones Negative, Urine Blood Negative, Urine Nitrate Negative, Urine Bilirubin Negative, Urine Urobilinogen 0.2, Ur Leukocyte Esterase Negative, Urine RBC Occasional, Urine WBC Occasional, Ur Squamous Epith Cells Occasional 12/30/24 21:40: Urine Opiates Screen Positive H, Urine Methadone Screen Negative, Ur Barbituates Screen Negative, Ur Phencyclidine Scrn Negative, Ur Amphetamines Screen Negative, U Benzodiazepines Scrn Negative, Urine Cocaine Screen Negative, U Marijuana (THC) Screen Negative 12/31/24 01:25: Troponin I < 0.01 12/31/24 06:30: WBC 6.1 D, RBC 4.03 L, Hgb 12.3 L, Hct 37.8 L, MCV 93.8, MCH 30.5, MCHC 32.5, RDW 14.2, Plt Count 318, MPV 10.4, Neut % (Auto) 69.0, Lymph % (Auto) 19.9, Haskell % (Auto) 9.9 H, Eos % (Auto) 0.5, Baso % (Auto) 0.5, Neut # (Auto) 4.2, Lymph # (Auto) 1.2, Haskell # (Auto) 0.6, Eos # (Auto) 0.0, Baso # (Auto) 0.0, Sodium 141, Potassium 4.6, Chloride 110 H, Carbon Dioxide 22, Anion Gap 13.6, BUN 30 H, Creatinine 1.90 H D, Estimated Creat Clear 41, Estimated GFR 35 L, Est GFR ( Amer) 43 L D, Glucose 102 H D, Calcium 8.4, Total Creatine Kinase 165, Troponin I < 0.01 I & O for Last 24 hours: Intake & Output 12/28/24 12/29/24 12/30/24 12/31/24 23:59 23:59 23:59 23:59 Intake Total 1051.667 / 1051.667 Output Total 425 / 425 Balance 626.667 / 626.667 Weight 83.007 kg 80.558 kg Constitutional Constitutional: no acute distress *Routine HEENT Exam Head: Present normocephalic Eye: Present EOMI and PERRL ENT: Present mucous membranes moist *Routine Neck Exam Neck: Present supple; Absent lymphadenopathy *Routine Respiratory Exam Respiratory: Present CTA bilaterally *Routine Cardiovascular Exam Cardiovascular: Present RRR *Routine Abdominal Exam Abdominal: Present soft and normoactive bowel sounds; Absent tenderness *Routine Extremities Exam Extremities: Absent cyanosis, clubbing or edema *Routine Skin Exam Skin: Present warm; Absent rash *Routine Neurological Exam Neurological: Present alert and oriented X3 Results Data Completed and Pending Labs on day of discharge: Labs from last 24 hours 12/31/24 12/31/24 12/30/24 06:30 01:25 21:40 WBC 6.1 D RBC 4.03 L Hgb 12.3 L Hct 37.8 L MCV 93.8 MCH 30.5 MCHC 32.5 RDW 14.2 Plt Count 318 MPV 10.4 Neut % (Auto) 69.0 Lymph % (Auto) 19.9 Haskell % (Auto) 9.9 H Eos % (Auto) 0.5 Baso % (Auto) 0.5 Neut # (Auto) 4.2 Lymph # (Auto) 1.2 Haskell # (Auto) 0.6 Eos # (Auto) 0.0 Baso # (Auto) 0.0 PT INR APTT Sodium 141 Potassium 4.6 Chloride 110 H Carbon Dioxide 22 Anion Gap 13.6 BUN 30 H Creatinine 1.90 H D Estimated Creat Clear 41 Estimated GFR 35 L Est GFR ( Amer) 43 L D Glucose 102 H D Calcium 8.4 Total Bilirubin AST ALT Alkaline Phosphatase Total Creatine Kinase 165 Troponin I < 0.01 < 0.01 NT-Pro-B Natriuret Pep Total Protein Albumin Globulin Albumin/Globulin Ratio Triglycerides Cholesterol LDL Cholesterol Direct VLDL Cholesterol HDL Cholesterol Cholesterol/HDL Ratio Urine Color Urine Appearance Urine pH Ur Specific [place] Urine Protein Urine Glucose (UA) Urine Ketones Urine Blood Urine Nitrate Urine Bilirubin Urine Urobilinogen Ur Leukocyte Esterase Urine RBC Urine WBC Ur Squamous Epith Cells Urine Opiates Screen Positive H Urine Methadone Screen Negative Ur Barbituates Screen Negative Ur Phencyclidine Scrn Negative Ur Amphetamines Screen Negative U Benzodiazepines Scrn Negative Urine Cocaine Screen Negative U Marijuana (THC) Screen Negative Plasma/Serum Alcohol 12/30/24 12/30/24 21:38 20:15 WBC 8.4 RBC 3.95 L Hgb 12.1 L Hct 36.9 L MCV 93.4 MCH 30.6 MCHC 32.8 RDW 13.8 Plt Count 355 MPV 10.3 Neut % (Auto) 68.8 Lymph % (Auto) 19.8 Haskell % (Auto) 8.8 Eos % (Auto) 1.5 Baso % (Auto) 0.7 Neut # (Auto) 5.8 Lymph # (Auto) 1.7 Haskell # (Auto) 0.7 Eos # (Auto) 0.1 Baso # (Auto) 0.1 PT 11.1 INR 1.00 APTT 24.2 Sodium 141 Potassium 4.3 Chloride 109 H Carbon Dioxide 22 Anion Gap 14.3 BUN 32 H Creatinine 2.70 H Estimated Creat Clear Estimated GFR 23 L Est GFR ( Amer) 28 L Glucose 133 H Calcium 8.7 Total Bilirubin 0.6 AST 31 ALT 22 Alkaline Phosphatase 82 Total Creatine Kinase Troponin I < 0.01 NT-Pro-B Natriuret Pep 250 H Total Protein 7.4 Albumin 4.4 Globulin 3.0 Albumin/Globulin Ratio 1.5 Triglycerides 152 H Cholesterol 148 LDL Cholesterol Direct 72.17 L VLDL Cholesterol 30 HDL Cholesterol 41 Cholesterol/HDL Ratio 3.6 H Urine Color Yellow Urine Appearance Clear Urine pH 5.5 Ur Specific [place] <= 1.005 Urine Protein Negative Urine Glucose (UA) Negative Urine Ketones Negative Urine Blood Negative Urine Nitrate Negative Urine Bilirubin Negative Urine Urobilinogen 0.2 Ur Leukocyte Esterase Negative Urine RBC Occasional Urine WBC Occasional Ur Squamous Epith Cells Occasional Urine Opiates Screen Urine Methadone Screen Ur Barbituates Screen Ur Phencyclidine Scrn Ur Amphetamines Screen U Benzodiazepines Scrn Urine Cocaine Screen U Marijuana (THC) Screen Plasma/Serum Alcohol < 10 DS: Diagnosis Discharge Diagnosis (1) SANTANA (acute kidney injury): Status: Acute Code(s): N17.9 - Acute kidney failure, unspecified (2) Bradycardia: Status: Acute Code(s): R00.1 - Bradycardia, unspecified (3) HFrEF (heart failure with reduced ejection fraction): Status: Acute Code(s): I50.20 - Unspecified systolic (congestive) heart failure (4) RADHA (obstructive sleep apnea): Status: Chronic Code(s): G47.33 - Obstructive sleep apnea (adult) (pediatric) (5) Chronic kidney disease: Status: Chronic Code(s): N18.9 - Chronic kidney disease, unspecified Qualifiers: Chronic kidney disease stage: stage 1 Qualified Code(s): N18.1 - Chronic kidney disease, stage 1 Meds Home Medications and Allergies Home Medications ?Medication ?Instructions ?Recorded ?Confirmed ?Type gabapentin enacarbil 600 mg 600 mg PO HSP PRN LEG PAIN 11/30/24 12/31/24 History tablet,extended release (Horizant ER) aspirin 81 mg tablet,delayed 81 mg PO DAILY #30 tabs 12/28/24 12/31/24 Rx release (Adult Aspirin Regimen) metoprolol succinate 25 mg 12.5 mg (1/2 x 25 mg) PO DAILY #30 12/28/24 12/31/24 Rx tablet,extended release 24 hr tabs (Toprol XL) rosuvastatin 40 mg tablet (Crestor) 40 mg PO DAILY #30 tabs 12/28/24 12/31/24 Rx sacubitril 24 mg-valsartan 26 mg 1 tab PO BID #60 tabs 12/28/24 12/31/24 Rx tablet (Entresto) albuterol 90 mcg-budesonide 80 2 inh inhalation Q6HP PRN 12/31/24 12/31/24 History mcg/actuation HFA aerosol inhaler shortness of breath or wheezing (Airsupra) hydrocodone 10 mg-acetaminophen 1 tab PO TID 12/31/24 12/31/24 History 325 mg tablet ropinirole 1 mg tablet 1 mg PO 0900,1500 12/31/24 12/31/24 History ropinirole 1 mg tablet 2 mg PO HS 12/31/24 12/31/24 History New Prescriptions to Start Prescriptions: Allergies Allergy/AdvReac Type Severity Reaction Status Date / Time Penicillins Allergy Mild Gastrointestinal Verified 12/28/24 11:27 Upset Discharge Plan Disposition Patient Disposition: Home, Self-Care Condition: Fair Follow up Plan Follow up with: Estella Lemus APRN [Nurse Practitioner, Cardiology] - 1 week Referral Note: Please call for appointment. Prescriptions/Medication Reconciliation: Continued Horizant 600 mg tablet extended release 600 mg PO HSP PRN (Reason: LEG PAIN) Patient Comments: 600 mg orally at bedtime nightly, Max Daily Dose: 600 mg; administer daily at approximately 5 PM with food/evening meal aspirin [Adult Aspirin Regimen] 81 mg tablet,delayed release (DR/EC) 81 mg PO DAILY Qty: 30 2RF rosuvastatin [Crestor] 40 mg tablet 40 mg PO DAILY Qty: 30 2RF ropinirole 1 mg tablet 1 mg PO 0900,1500 ropinirole 1 mg tablet 2 mg PO HS hydrocodone-acetaminophen 10-325 mg tablet 1 tab PO TID Airsupra 90-80 mcg/actuation HFA aerosol inhaler 2 inh inhalation Q6HP PRN (Reason: shortness of breath or wheezing) Held metoprolol succinate [Toprol XL] 25 mg tablet extended release 24 hr 12.5 mg PO DAILY Qty: 30 2RF Hold Instructions: Resume on 01/07/25. Hold until you follow-up with your board mixer tender. sacubitril-valsartan [Entresto] 24-26 mg tablet 1 tab PO BID Qty: 60 2RF Hold Instructions: Resume on 01/07/25. Hold until you follow-up with your board mixer tender. Problem Reconciliation Problems Reviewed?: Yes Patient Discharge Instructions Patient Instructions: Bradycardia Print Language: Hebrew Providers Primary Care Provider: Angel Frank Admit Provider: Juan Luis Nelson Attending Provider: Juan Luis Nelson
--- NOTE | 2025-01-02 11:05 | SW/DCPLANNER ---
Spoke with patient on the phone. Patient stated that he is doing well. Patient stated that he is aware of his upcoming appointments. Patient stated that he was able to get his new medicine. Patient stated that he has no concerns or questions at this time. Daniela Benton
== END 2024-12-31 14:41 | disposition home or self-care (01) ==
LOC: ER 20:34 → 2ND 12-31 00:11
PROVIDERS: Nurse Practitioner; Nurse Practitioner Acute Care; Admitting Provider Student in an Organized Health Care Education/Training Program; Emergency Provider Student in an Organized Health Care Education/Training Program; PCP Internal Medicine; Visit Provider Student in an Organized Health Care Education/Training Program
DX: N17.9 Acute kidney failure, unspecified (principal); N18.32 Chronic kidney disease, stage 3b; I50.22 Chronic systolic (congestive) heart failure; I95.9 Hypotension, unspecified; G47.33 Obstructive sleep apnea (adult) (pediatric); R00.1 Bradycardia, unspecified; R91.1 Solitary pulmonary nodule; J45.909 Unspecified asthma, uncomplicated; M47.812 Spondylosis without myelopathy or radiculopathy, cervical region; G25.81 Restless legs syndrome; Z88.0 Allergy status to penicillin; Z79.51 Long term (current) use of inhaled steroids; Z87.891 Personal history of nicotine dependence; Z79.899 Other long term (current) drug therapy
CPT/HCPCS: 36415; 70450; 70496; 70498; 71045; 71275; 80048; 80053; 80061; 80307; 80320; 81001; 82550; 83497; 83880; 84484; 85025; 85610; 85730; 93005; 93308; 96360; 96361; 99285; G0378; J7120; Q9967

== ENCOUNTER 2025-01-06 09:55 | Day surgery (SDC) | payer MEDICARE, SELFPAY ==
[2025-01-06] VITALS (12 sets, daily range): BP systolic 118–169; BP diastolic 66–88; PULSE 51–70; RESP 16–20; O2SAT 90–99; BMI 29.3
--- NOTE | 2025-01-06 07:03 | IR_ITS ---
APPROVED REPORT Patient Location: Outpatient PROCEDURES Left heart catheterization Left ventriculogram Selective coronary angiogram INDICATION Cardiomyopathy ejection fraction 30 to 35%, Abnormal Myoview Informed consent was obtained prior to the procedure. COMPLICATIONS NONE Estimated Blood Loss: LESS THAN 10 ML TECHNIQUE One percent lidocaine used to anesthetize the right anterior aspect of the wrist. The right radial artery was accessed via the Seldinger technique. A 6 [place] sheath was placed in the right radial artery. 2.5 mg of Verapamil, 800 mcg of nitroglycerin, 1mg Lidocaine and 5000 U Heparin were given through the arterial sheath. The JL3 catheter was also used to perform left heart catheterization, left ventriculogram and selective coronary angiogram. At the end of the procedure the sheath was removed good hemostasis was achieved using Traclet band, patient was transferred to the postop holding area in stable condition. ANGIOGRAPHIC RESULTS The left main artery Normal The left anterior descending artery Proximal smooth 10 to 20% stenosis with a mild mid vessel 30% myocardial bridge The circumflex artery Large dominant normal The right coronary artery Vestigial normal The KWAN ventriculogram reveals Reduced at 35% The left ventricular end-diastolic pressure 20 mmHg IMPRESSION Nonischemic coronary artery disease Inconsequential myocardial bridge Reduced ejection fraction Mildly elevated LVEDP PLAN 1. GDMT for systolic heart failure 2. Factor modification for coronary disease 3. Consider cardiac MRI and further workup for cardiomyopathy Electronically signed by : Juan Escalante MD 01/06/2025 12:06:38
[2025-01-06 10:16] LABS: Hematocrit 35.1 % (42.0-52.0); Hemoglobin 11.4 g/dL (14.1-18.0); Immature Granulocytes % 0.3 %; Mean Corpuscular HGB Conc 32.5 g/dL (31.8-35.4); Mean Corpuscular Hemoglobin 30.2 pg (27.0-31.2); Mean Corpuscular Volume 93.1 fl (80-94); Nucleated Red Blood Cells % 0 %; Platelet Count 276 K/mm3 (142-424); Red Blood Count 3.77 M/mm3 (4.60-6.20); Red Cell Distribution Width-SD 46.3 fL; White Blood Count 6.8 K/mm3 (4.8-10.8)
[2025-01-06 10:34] LABS: Chloride 104 mmol/L (98-107); Potassium 4.4 mmoL/L (3.5-5.1); Sodium 141 mmol/L (136-145)
[2025-01-06 10:37] LABS: Anion Gap 13.4 mEq/L (5-15); Blood Urea Nitrogen 13 mg/dl (9-20); Calcium 8.3 mg/dl (8.4-10.2); Carbon Dioxide 28 mmol/L (22.0-30.0); Creatinine Clearance Estimated 57 mL/min (50-200); Creatinine,Serum 1.40 mg/dl (0.66-1.25); Estimated Glomerular Filt Rate 50 ml/min (>60); GFR (African American) 61 ML/MIN (>60); Glucose 103 mg/dl (74-100)
[2025-01-06] MEDS: 0.9 % SODIUM CHLORIDE 500 ML 25 ML IV (11:53)
[2025-01-06] MEDS: LIDOCAINE 1% 10ML MDV 10 ML IJ (11:53)
[2025-01-06] MEDS: VERAPAMIL 2.5MG/ML 2ML VIAL 2.5 MG IV (11:53)
[2025-01-06] MEDS: NITROGLYCERIN 800MCG/8ML SYR (CATH LAB) 800 MCG IA (11:53)
[2025-01-06] MEDS: HEPARIN 1,000 UNITS/500ML NS (CATH LAB) 3000 UNIT IV (11:53)
[2025-01-06] MEDS: HEPARIN 1,000 UNITS/ML 10ML VIAL (CATH LAB) 5000 UNIT IV (11:54)
[2025-01-06] MEDS: MIDAZOLAM HCL 1MG/ML 5ML VIAL 1 MG IV (12:05)
[2025-01-06] MEDS: FENTANYL 100MCG/2ML VIAL 50 MCG IV (12:05)
[2025-01-06] MEDS: IOPAMIDOL-370 (76%);100ML BOTTLE 40 ML IV (13:32)
== END 2025-01-06 14:44 | disposition home or self-care (01) ==
PROVIDERS: PCP Internal Medicine; Visit Provider Internal Medicine
PROC: 4A023N7 Measurement of Cardiac Sampling and Pressure, Left Heart, Percutaneous Approach (ICD-10-PCS; CPT 93452; principal; 2025-01-06 11:30)
DX: I25.10 Atherosclerotic heart disease of native coronary artery without angina pectoris (principal); Q24.5 Malformation of coronary vessels; I50.20 Unspecified systolic (congestive) heart failure; R94.31 Abnormal electrocardiogram [ECG] [EKG]; R55 Syncope and collapse; R42 Dizziness and giddiness; J45.909 Unspecified asthma, uncomplicated; G25.81 Restless legs syndrome; Z87.891 Personal history of nicotine dependence; Z79.82 Long term (current) use of aspirin; Z79.899 Other long term (current) drug therapy; Z88.0 Allergy status to penicillin; I49.3 Ventricular premature depolarization
CPT/HCPCS: 36415; 80048; 85025; 93458; 99152; C1725; C1769; J1200; J1644; J2003; J3010; J7040; Q9967

== ENCOUNTER 2025-01-18 14:59 | Outpatient (CLI) | payer MEDICARE, SELFPAY ==
[2025-01-18 15:44] LABS: Hematocrit 38.8 % (42.0-52.0); Hemoglobin 12.1 g/dL (14.1-18.0); Immature Granulocytes % 0.1 %; Mean Corpuscular HGB Conc 31.2 g/dL (31.8-35.4); Mean Corpuscular Hemoglobin 29.4 pg (27.0-31.2); Mean Corpuscular Volume 94.4 fl (80-94); Nucleated Red Blood Cells % 0 %; Platelet Count 302 K/mm3 (142-424); Red Blood Count 4.11 M/mm3 (4.60-6.20); Red Cell Distribution Width-SD 45.9 fL; White Blood Count 7.5 K/mm3 (4.8-10.8)
[2025-01-18 16:18] LABS: Alanine Aminotransferase 19 U/L (12-78); Albumin Level 4.2 g/dl (3.5-5.0); Alkaline Phosphatase 101 U/L (38-126); Anion Gap 15.4 mEq/L (5-15); Aspartate Amino Transferase 23 U/L (17-59); Bilirubin,Direct 0.2 mg/dl (0.0-0.4); Bilirubin,Indirect 0.4 mg/dL (0.0-0.9); Bilirubin,Total 0.6 mg/dl (0.2-1.3); Bilirubin,Unconjugated 0.4 mg/dL (0.0-1.1); Blood Urea Nitrogen 18 mg/dl (9-20); Calcium 8.8 mg/dl (8.4-10.2); Carbon Dioxide 25 mmol/L (22.0-30.0); Chloride 108 mmol/L (98-107); Cholesterol 98 mg/dl (140-200); Creatinine,Serum 1.50 mg/dl (0.66-1.25); Estimated Glomerular Filt Rate 46 ml/min (>60); GFR (African American) 56 ML/MIN (>60); Glucose 107 mg/dl (74-100); HDL Cholesterol 55 mg/dl (40-60); Magnesium 2.1 mg/dl (1.6-2.3); Potassium 4.4 mmoL/L (3.5-5.1); Sodium 144 mmol/L (136-145); Total Protein,Serum 6.6 g/dl (6.3-8.2); Triglycerides 146 mg/dl (30-150)
[2025-01-18 16:37] LABS: Free T4 (Free Thyroxine) 1.03 ng/dl (0.78-2.19)
[2025-01-18 16:47] LABS: Thyroid Stimulating Hormone 2.12 uIU/mL (0.465-4.68)
== END 2025-01-18 23:59 | disposition home or self-care (01) ==
LOC: LAB 15:00
PROVIDERS: PCP Internal Medicine; Visit Provider Nurse Practitioner
DX: R94.31 Abnormal electrocardiogram [ECG] [EKG] (principal); I49.3 Ventricular premature depolarization; R55 Syncope and collapse; I50.20 Unspecified systolic (congestive) heart failure; I42.9 Cardiomyopathy, unspecified
CPT/HCPCS: 36415; 80048; 80061; 80076; 83735; 84439; 84443; 85025

== ENCOUNTER 2025-03-13 09:12 | Outpatient (CLI) | payer MEDICARE, SELFPAY ==
--- NOTE | 2025-03-13 09:30 | CA_ITS ---
APPROVED REPORT EXAM: Comprehensive 2D, Doppler, and color-flow Echocardiogram Heel Builder Machine: Yulisa Villarreal RT(R) Ht: 5 ft 6 in Wt: 182lbs BSA: 1.92 BP: 144/79 mmHg Indications: HFrEF, EF 30-35% on echo 12/15/24. Ordered as a limited to reassess EF 2D Dimensions EF AP4 47.10 % GL Strain -18.9 % M-Mode Dimensions RVDd 2.46 cm (0.9-2.6) LA Diam 2.78 cm (1.9-4.0) LVDd 5.95 cm (3.5-5.7) LVDs 4.36 cm (3.5-5.7) IVSd 0.91 cm (0.6-1.1) PWd 0.91 cm (0.6-1.1) EF (Teich) 51.40% FS 26.70% EDV (Teich) 176.60 mL ESV (Teich) 85.80 mL LV Diastology E Decel Time 213 (160-240 msec) E/A Ratio 1.22 Mitral Valve MV A Velocity 84.0 (40-130 cm/s) E/A Ratio 1.22 Other Information Study Quality: Fair Conclusion This is a limited TTE to evaluate for LV systolic function. Limited windows are obtained. The left ventricle is normal in size. There is increased LV wall thickness. There is moderate reduction in global LV systolic function. LVEF is 30-35%. Compared to prior study from 12/15/2024, the LV systolic function is unchanged. Electronically signed by : Anna Fleming MD 03/14/2025 13:28:54
== END 2025-03-13 23:59 | disposition home or self-care (01) ==
LOC: RT 09:12
PROVIDERS: PCP Internal Medicine; Visit Provider Nurse Practitioner
DX: I50.20 Unspecified systolic (congestive) heart failure (principal); I49.3 Ventricular premature depolarization; R94.31 Abnormal electrocardiogram [ECG] [EKG]; R55 Syncope and collapse; I42.9 Cardiomyopathy, unspecified
CPT/HCPCS: 93308

== ENCOUNTER 2025-03-24 09:59 | Outpatient (CLI) | payer MEDICARE, SELFPAY ==
[2025-03-24 10:26] LABS: Blood Urea Nitrogen 13 mg/dl (9-20); Creatinine,Serum 1.40 mg/dl (0.66-1.25); Estimated Glomerular Filt Rate 50 ml/min (>60); GFR (African American) 60 ML/MIN (>60)
--- NOTE | 2025-03-24 10:30 | MR_ITS ---
APPROVED REPORT Order Puller: CLINICAL INDICATION Cardiomyopathy evaluation TECHNIQUE Image Acquisition: Cardiac magnetic resonance (CMR) was performed on Siemens Espree MRI 1.5T scanner. Software platform sequences were performed using the Siemens Anevia MR B19 platform. A set of three-plane, low-resolution, large [id number] localizers were initially acquired. Then axial, coronal, sagittal TrueFISP, as well as axial HASTE images, were obtained. These were followed by gated TrueFISP breathold cinematic sequences obtained in the short axis with 8 mm slices and 2 mm gaps, 2-chamber (vertical long axis), 3-chamber, 4-chamber (horizontal long axis). A bolus of contrast was injected intravenously with first-pass sequences obtained in the short axis and four-chamber planes. After approximately 10 minutes, a TI die sinking machine operator sequence was performed to determine the optimal TI time. Using the optimized TI time, delayed contrast enhancement segmented inversion???recovery TurboFLASH sequences were obtained in the short axis, 2-chamber, 3-chamber, and 4-chamber projections. 2D-velocity phase mapping was performed. Functional parameters were calculated by offline analysis on an independent workstation ([employer], [employer]). Contrast: ProHance??? (Gadoteridol) FINDINGS MORPHOLOGY AND FUNCTION Left ventricle: The left ventricle is normal in size. The indexed left ventricular end-diastolic volume (LVEDVi) is 58 ml/m2 (reference range 57-105 ml/m2 in males, 56-96 ml/m2 in females). Moderate reduction in left ventricular systolic function is present. There is normal left ventricular wall thickness. There are no regional wall motion abnormalities noted. LVEF is calculated at 32.6% (reference range 57-77%). Right ventricle: The right ventricle is normal in size. The indexed right ventricular end-diastolic volume (RVEDVi) is 43 ml/m2 (reference range 61-121 ml/m2 in males, 48-112 ml/m2 in females). Moderate reduction in right ventricular systolic function is present. RVEF is calculated at 32.7% (reference range 52-72% in males, 51-71% in females). Atria: The left atrium is normal in size. The maximum indexed left atrial volume is 28 ml/m2 (reference range 26-52 ml/m2 in males, 27-53 ml/m2 in females). The right atrium is normal in size. The maximum indexed right atrial volume is 18 ml/m2 (reference range 18-90 ml/m2). Aorta: The diameter of the aortic annulus is normal, measuring 26 mm (coronal view reference range 21-30 mm in males, 19-27 mm in females). The diameter of the aortic sinus is normal, measuring 35 mm (coronal view reference range 25-42 mm in males, 24-36 mm in females). The diameter of the sinotubular junction is normal, measuring 30 mm (coronal view reference range 18-32 mm in males, 18-28 mm in females). The diameters of the ascending and descending thoracic aorta are normal. Main pulmonary artery: The main pulmonary artery diameter is normal. Pericardium: The pericardial thickness is normal. The pericardial thickness measures 1.0 mm (normal < 4.0 mm). There is no pericardial effusion. VALVES The valvular morphologies in the visualized sequences appear normal. There is no significant valvular stenosis or regurgitation of the mitral, aortic, tricuspid, or pulmonic valve noted visually. Systolic anterior motion of the mitral valve is not visualized. Ratio of pulmonary to systemic flow, Qp:Qs ratio = 1.23 (normal < or = 1.2, hemodynamically significant shunt > 1.5), demonstrating no evidence of hemodynamically significant shunt. TISSUE CHARACTERIZATION Resting Perfusion: Normal myocardial blood flow at rest. No evidence of resting hypoperfusion. Myocardial Fibrosis and/or edema: Normal gadolinium kinetics are present. No evidence of late gadolinium enhancement is noted, consistent with absence of myocardial scarring, infarction, or necrosis. T2-weighted imaging demonstrates no evidence of myocardial edema or inflammation. OTHER No other significant findings are noted. However, this exam is focused on the cardiac structure and function. IMPRESSION Normal LV size with moderate reduction in LV systolic function. LVEDVi= 58 ml/m2 and LVEF= 32.6%. Normal RV size with moderate reduction in RV systolic function. RVEDVi= 43 ml/m2 and RVEF= 32.7%. No atrial enlargement. No CMR evidence of myocardial scarring, infarction, or necrosis. No evidence of myocardial edema or inflammation. Perfusion analysis demonstrates normal blood flow at rest with no evidence of resting hypoperfusion. Ratio of pulmonary to systemic flow, Qp:Qs ratio = 1.23 (normal < or = 1.2, hemodynamically significant shunt > 1.5), demonstrating no evidence of hemodynamically significant shunt. COMPARISON None CRITICAL RESULT None COMMUNICATION The above findings were relayed to the patient at the time of the routine outpatient cardiology follow-up visit, prior to dictation of this report. The findings of this cardiac MR were reviewed, reported, and signed by Sang Fleming MD (Shutdown Planner). Conclusion Electronically signed by : Anna Fleming MD 04/11/2025 14:46:03
[2025-03-24] MEDS: 0.9 % SODIUM CHLORIDE 50 ML VIAL 10 ML IV (11:37)
[2025-03-24] MEDS: GADOTERIDOL INJ 20ML SYRINGE 18 ML IV (11:37)
== END 2025-03-24 23:59 | disposition home or self-care (01) ==
LOC: RAD 09:59
PROVIDERS: PCP Internal Medicine; Visit Provider Nurse Practitioner
DX: I50.20 Unspecified systolic (congestive) heart failure (principal); R94.31 Abnormal electrocardiogram [ECG] [EKG]; I49.3 Ventricular premature depolarization; R55 Syncope and collapse; I42.9 Cardiomyopathy, unspecified
CPT/HCPCS: 36415; 75561; 82565; 84520; A9576

== ENCOUNTER 2025-04-17 13:42 | Outpatient (CLI) | payer MEDICARE, SELFPAY | END 2025-04-17 23:59 | disposition home or self-care (01) | LOC: RT 13:43 | PROVIDERS: PCP Internal Medicine; Visit Provider Physician Assistant | DX: I49.1 Atrial premature depolarization (principal); I47.10 Supraventricular tachycardia, unspecified; I49.3 Ventricular premature depolarization; I47.20 Ventricular tachycardia, unspecified; I42.8 Other cardiomyopathies | CPT/HCPCS: 93270 ==